=== PATIENT | female | born 1955 | race Caucasian/White ===

== ENCOUNTER → 2018-02-17 11:54 | Outpatient (CLI) | payer MEDICARE, MEDICAID, SELFPAY ==
--- NOTE | 2018-02-17 12:18 | RAD_ITS ---
STUDY: X-RAY - LUMBAR SPINE REASON FOR EXAM: Female, 62 years old. Fall. Lower back and tailbone pain. TECHNIQUE: 3 view(s) of the lumbar spine were obtained. COMPARISON: MRI of the lumbar spine, September 10, 2017. FINDINGS: There is reversal of the normal lumbar lordosis. There is no substantial scoliosis. There is a normal alignment of the vertebrae. There is a compression deformity of L3 unchanged from prior study. The remainder of the vertebral axial heights are maintained. There is stable disc space narrowing and endplate spondylosis most marked at L5-S1. There is diffuse gaseous distention of bowel loops. RAD/Lumbar Spine 2 or 3 Views IMPRESSION: 1. Stable flattening of this lumbar lordosis. 2. Stable compression deformity of L3. 3. Stable degenerative changes of the lumbar spine. Electronically Signed: Cole St DO at 17:12 EDT Tel [phone], Service support ,
--- NOTE | 2018-02-17 12:18 | RAD_ITS ---
STUDY: X-RAY - SACRUM/COCCYX REASON FOR EXAM: Female, 62 years old. Fall. Lower back elbow TECHNIQUE: 3 view(s) of the sacrum and coccyx were obtained. COMPARISON: None. FINDINGS: Normal bilateral sacroiliac joints. Normal visualized sacral ala and fused sacral bodies. Normal sacrococcygeal junction with a normal angulation. Normal coccygeal segments. The presacral soft tissue structures are unremarkable. RAD/Sacrum-Coccyx min 2 Views IMPRESSION: No fracture or dislocation. Electronically Signed: Cole St DO at 16:55 EDT Tel [phone], Service support ,
[2018-02-17 12:43] LABS: Amphetamine Urine VISTA NEGATIVE (<1000 ng/mL); Barbiturate Urine VISTA NEGATIVE (< 200 ng/mL); Benzodiazepine Urine VISTA NEGATIVE (< 200 ng/mL); Cocaine Urine VISTA NEGATIVE (< 300 ng/mL); Ecstacy Urine VISTA NEGATIVE (< 500 ng/mL); Methadone Urine VISTA NEGATIVE (< 300 ng/mL); PCP Urine VISTA NEGATIVE (< 25 ng/mL); THC Urine VISTA NEGATIVE (< 50 ng/mL); Vista UDS pH Range 8
== END ==
PROVIDERS: Family Provider Nurse Practitioner Family; PCP Nurse Practitioner Family; Visit Provider Anesthesiology Pain Medicine
DX: M54.9 Dorsalgia, unspecified (principal); M79.606 Pain in leg, unspecified; W19.XXXA Unspecified fall, initial encounter; F11.20 Opioid dependence, uncomplicated
CPT/HCPCS: 72100; 72220; 80307

== ENCOUNTER 2018-04-23 16:39 | Inpatient (IN) | payer MEDICARE, MEDICAID, SELFPAY ==
[2018-04-23] VITALS (14 sets, daily range): BP systolic 106–147; BP diastolic 70–93; PULSE 108–124; RESP 15–32; TEMP 36.8–36.9; O2SAT 94–98; BMI 14.1; BMI 14.2; BMI 13.1
--- NOTE | 2018-04-23 16:54 | EKG12_ITS ---
Test Reason : SOB Blood Pressure : / mmHG Vent. Rate : 111 BPM Atrial Rate : 111 BPM P-R Int : 140 ms QRS Dur : 078 ms QT Int : 298 ms P-R-T Axes : 083 079 074 degrees QTc Int : 405 ms Sinus tachycardia Biatrial enlargement Abnormal ECG Confirmed by NEMESIO MÁRQUEZ, LIBORIO ([id number]), city editor HARSH GARCIA ([id number] on 04/25/2018 1:07:09 PM Referred By: LAM Confirmed By:LIBORIO HERR MD
--- NOTE | 2018-04-23 16:56 | ED.DCSUM_ITS ---
- ER Visit Summary Date of Service: 04/23/18 Chief Complaint: Shortness of breath History of Present Illness: The patient is a 62 F presenting with shortness of breath, wheezing, cough. She states this has been ongoing for the past week. She has had a productive cough. She called her family doctor and they called her in a Z-Zaheer. She has not improved. She is on home O2 2 L. She continues to smoke 1 pack per day. She has history of COPD and Crohn's disease. Physical Examination: Vitals are stable. Patient is afebrile. Alert no acute distress. HEENT exam is unremarkable. Neck is supple. Lungs are diminished bilaterally. Heart is regular and tachycardic Abdomen is soft nontender nondistended. Extremities are unremarkable. Skin is warm and dry. No focal neurologic deficit. Remainder of exam is unremarkable. Emergency Department Course and Treatment: Patient is given albuterol, atrovent. EKG is sinus rate of 111, peaked T waves. Chest x-ray shows COPD. CBC, chemistries unremarkable other than potassium is 6.0. Troponin is negative. Patient was given insulin and glucose IV. She was given Solu-Medrol IV. CTA chest shows no PE or dissection, emphysema. Patient continues to have wheezing and shortness of breath despite breathing treatments and medications. Discussed with the hospitalist for admission. She will be given calcium and Kayexalate. Patient will be admitted to telemetry. Disposition: Admission Impression: COPD exacerbation, hyperkalemia This note was generated with [facility] dictation software. It may contain incorrect words, spelling, and punctuation that were not noted in review of the chart prior to signing ED Disposition - Plan for ED Patient: Chief Complaint: Shortness of Breath Referrals: Betina Rae, NURIA-C [Primary Care Provider] -
--- NOTE | 2018-04-23 17:00 | RAD_ITS ---
STUDY: X-RAY CHEST REASON FOR EXAM: Female, 62 years old. Shortness of breath. History of COPD. TECHNIQUE: Single AP portable view of the chest. COMPARISON: None. FINDINGS: Telemetry wires overlie the chest. The lungs are markedly hypoexpanded. There is diffuse coarsened interstitial markings. There is evidence of scarring and pleural thickening in the left lower costophrenic angle. This appears chronic however a acute abnormality cannot BE completely ruled out. Normal size heart. Normal mediastinum and jimmy. Normal visualized pulmonary arteries. There is atherosclerotic calcification of the aortic arch with tortuosity. The thoracic spine is obscured by the mediastinum. Normal visualized ribs, clavicles, and shoulders. There is no demonstrated abnormality of the visualized soft tissue structures of the upper abdomen. RAD/Chest 1 View (Portable) IMPRESSION: COPD with pleural thickening and scarring in the left lung base. Patient may benefit from CT to rule out underlying mass or acute infiltrate. Electronically Signed: Cole St DO at 17:11 EDT Tel [phone], Service support ,
[2018-04-23] MEDS: Ipratropium/Albuterol Sulfate 3 ML AMPUL.NEB INHALATION ×2 (17:06→23:15)
[2018-04-23] MEDS: Albuterol 2.5 MG/3 ML VIAL.NEB. INHALATION ×3 (17:06→17:56)
[2018-04-23 17:09] LABS: Absolute Lymphocyte Count 1.66 X10^3/ul (0.83-4.51); Absolute Neutrophil Count 7.8 X10^3/uL (2.0-7.7); Basophil# 0.03 X10^3/uL; Basophil% 0.3 % (0-1); Eosinophils% 0.9 % (0-5); Hematocrit 42.5 % (37-47); Hemoglobin 13.4 g/dl (12.0-15.0); Lymphocyte # 1.66 X10^3/ul (4.0); Lymphocyte % 15.4 % (19-41); Mean Corp Hgb Conc 31.5 g/gl (32-36); Mean Corpuscular Hgb 31.5 pg (27.0-32.0); Mean Platelet Vol. 10.6 fl (6.2-12.0); Monocyte# 1.15 X10^3/uL; Monocyte% 10.7 % (0-10); Neutrophil # 7.82 X10^3/uL (2.7-7.7); Neutrophil % 72.6 % (47-70); Platelet Count 320 K/mm3 (150-450); RBC Distribution Width CV 12.9 % (11.6-14.6); RBC Distribution Width SD 47.1 fl (35.1-43.9); Red Blood Count 4.25 M/mm3 (4.2-5.4); White Blood Count 10.8 K/mm3 (4.4-11.0)
[2018-04-23 17:23] LABS: POSITIVE COUNT NO; POSITIVE DIFFERENTIAL NO; POSITIVE MORPHOLOGY NO
[2018-04-23 17:33] LABS: Anion Gap 5 (5-15); BUN 13 mg/dL (7-18); BUN/Creat Ratio 21.9 RATIO (10-20); Calcium,Total 9.2 mg/dL (8.5-10.1); Chloride 97 mmol/L (98-107); Creatinine, Serum 0.59 mg/dL (0.55-1.02); EST Glomerular Filtration Rate 110 mL/min (>60); Est Glom Filt Rate - Afr Amer 133 mL/min (>60); Estimated Creatinine Clearance 58.01 ml/min; Glucose 85 mg/dL (74-106); Sodium Level 135 mmol/L (136-145)
--- NOTE | 2018-04-23 17:35 | CT_ITS ---
STUDY: CTA CHEST REASON FOR EXAM: Female, 62 years old. Cough. Shortness of breath. Wheezing for one week. RADIATION DOSAGE (If Supplied By Facility): CTDIvol = ( 5.34 ) mGy, DLP = ( 160.92 ) mGycm TECHNIQUE: The examination was performed with the intravenous administration of 100 ml of Isovue 300 contrast material. Post-processing of the angiographic images was performed, with multiplanar reformation and 3D reconstruction. Individualized dose optimization techniques were used for this CT. COMPARISON: Chest, April 23, 2018. FINDINGS: Normal enhancement of the main pulmonary artery and right and left pulmonary arteries. Normal enhancement of the bilateral peripheral pulmonary arteries. There is no demonstrated pulmonary embolism. Normal thoracic aorta and visualized great vessels. There is no demonstrated aortic dissection. Normal heart and pericardium. Normal mediastinum. Normal hilar regions. Normal visualized trachea and bronchi. The lungs are hyper expanded, with flattening of the hemidiaphragms. There are diffuse emphysematous changes in the lungs without focal mass. There is evidence of an azygous lobe in the right upper hemithorax. There is elevation of the left anterior diaphragm with minimal atelectatic changes at the left lung base. This accounts for the abnormality seen in this area on plain film. Normal pleura. Normal chest wall structures. Normal osseous structures. There is marked dilatation of the left renal collecting system. The remainder of the visualized upper abdomen is grossly normal. CT/CTA Chest W/WO Contrast IMPRESSION: 1. No evidence of pulmonary embolus. 2. No aortic dissection or aneurysm. 3. Marked emphysematous changes of the lungs without mass or infiltrate. 4. Elevation of the left anterior diaphragm with minimal left basilar atelectasis. 5. Dilated left renal collecting system. Electronically Signed: Cole St DO at 18:09 EDT Tel [phone], Service support ,
[2018-04-23] MEDS: Dextrose 50%-Water 25 GM/50 ML DISP.SYRIN IV (18:07)
[2018-04-23] MEDS: MethylPREDNISolone 125 MG/2 ML Vial IV (18:57)
[2018-04-23] MEDS: Sodium Polystyrene Sulfonate 15 GM/60 ML UDC 30 GM PO (19:34)
[2018-04-23] MEDS: CALCIUM CHLORIDE IV (19:43)
[2018-04-23] MEDS: WATER IV (19:43)
[2018-04-23] MEDS: DEXTROSE 5% IV (19:43)
--- NOTE | 2018-04-23 20:06 | PCM.HP.STD ---
Problem List (1) COPD with acute exacerbation Status: Acute (2) Hyperkalemia Status: Acute History of Present Illness Date of Admission: 04/23/18 This is a 62-year-old cachectic female with a significant history of COPD, Smoker for about 39 years and still continues to smoke; home oxygen use; and Crohn disease status post partial bowel resection who presents because of progressively worsening shortness of breath ?3-4 days. She uses 2 L nasal cannula home as needed but because of her current symptoms she has seen herself using her home oxygen continuously this last couple of days. She saw her primary care physician who started her on Z-Zaheer. She has 2 more doses of a Z-Zaheer left to take. However, because she noticed that she was progressively getting worse she presented herself to the emergency department today. At emergency department her potassium was 6.0 and she had peaked T waves. Per ED doctor, lab reported that the patient's blood was mildly hemolyzed. Patient is on home potassium supplement. Past Medical History Medical History: Medical History (Last Updated 04/23/18 @ 21:33 by Boubacar Donaldson MD) COPD (chronic obstructive pulmonary disease) J44.9 Crohn disease K50.90 Allergies erythromycin base Adverse Reaction (Verified 04/23/18 17:47) Unknown hydrocodone [From Vicodin] Adverse Reaction (Verified 04/23/18 16:41) Unknown alerted mental status Sulfa (Sulfonamide Antibiotics) Adverse Reaction (Verified 04/23/18 16:42) Nausea Home Medications: Ambulatory Orders Medication Instructions Recorded Acetaminophen 325 mg PO TID PRN PRN 04/23/18 Albuterol Inhaler [Ventolin Hfa 2 puff INHALATION Q6H PRN PRN 04/23/18 (SP)] Budesonide/Formoterol 160/4.5 2 puff INHALATION BID 04/23/18 [Symbicort 160/4.5 Mcg Inhaler (SP)] Cholecalciferol (Vitamin D3) 2,000 unit PO DAILY 04/23/18 [Vitamin D3] Ferrous Sulfate 325 mg PO DAILY@0800 04/23/18 Gabapentin [Neurontin] 300 mg PO TIDCM 04/23/18 Guaifenesin [Mucinex] 600 mg PO BID 04/23/18 Ipratropium/Albuterol Sulfate 3 ml INHALATION Q4H.RT 04/23/18 [Duoneb] Loperamide [Imodium] 2 mg PO Q4H PRN PRN 04/23/18 Magnesium Oxide [Magnesium] 400 mg PO BID 04/23/18 Melatonin 5 mg PO QHS 04/23/18 Mesalamine [Apriso] 375 mg PO DAILY 04/23/18 Potassium Chloride [K-Dur] 10 meq PO DAILY 04/23/18 Tiotropium [place] [Spiriva] 1 puff IH DAILY 04/23/18 traMADol [Ultram (G)] 50 mg PO BID 04/23/18 Surgical History: - - Bowel resection Psychiatric History: No pertinent psych hx Smoking Status: Current every day smoker Tobacco Use: Cigarettes Alcohol: None Drugs: None - *Family History Maternal History Items: No pertinent history Paternal History Items: No pertinent history Review of Systems Constitutional: Reports: Fatigue Eyes: Denies: Blurred vision, Pain HEENT: Reports: Head Aches Cardiovascular: Denies: Chest Pain, Palpitations Respiratory: Reports: Cough, Shortness of breath at rest Gastrointestinal: Reports: Abdominal Pain - Associated with coughing Genitourinary: Denies: Dysuria Musculoskeletal: Denies: Joint Pain, Joint Tenderness Neurological: Denies: Numbness, Tingling, Focal weakness Psychiatric: Reports: Anxiety Hematologic/ Lymphatic: Denies: Easy Bruising, Easy Bleeding VTE Information - Inpt Only VTE Present on Admission: No VTE Mechan Device Prophylaxis: None VTE Pharm Prophylaxis ordered?: Yes Patient Problems: Active and Suspected Problems (Last Updated 04/23/18 @ 21:33 by Boubacar Donaldson MD) COPD with acute exacerbation (Acute) Hyperkalemia (Acute) - Physical Exam General: Alert, Oriented x3, Cooperative HEENT: Atraumatic, PERRLA, EOMI, Normocephalic Neck: Supple, No JVD, Negative Carotid Bruits Lungs: Diminished Cardiovascular: Tachycardic Abdomen: Bowel Sounds Present, Soft, Non Tender Extremities: No edema, Capillary Refill Less than 3 Seconds Skin: No rashes, No breakdown Musculoskeletal: No Tenderness to Palpation of Joints or Extremities Lymphatic: No Cervical, Supraclavicular, or Inguinal Adenopathy Neurological: Cranial nerves II-XII grossly intact Vital Signs Temp Pulse Resp BP Pulse Ox 98.5 F 115 H 15 138/82 H 96 04/23/18 16:40 04/23/18 19:35 04/23/18 19:35 04/23/18 19:35 04/23/18 19:35 Oxygen Flow Rate (L/min) 2 Oxygen Delivery Method Nasal Cannula Weight: 36.242 kg Body Mass Index (BMI) 14.1 Laboratory Tests Past 24 Hrs 04/23/18 04/23/18 16:50 16:50 WBC 10.8 RBC 4.25 Hgb 13.4 Hct 42.5 MCV 100.0 H MCH 31.5 MCHC 31.5 L RDW 12.9 RDW Differential 47.1 H Plt Count 320 MPV 10.6 Immature Gran % (Auto) 0.100 Neut % (Auto) 72.6 H Lymph % (Auto) 15.4 L [place] % (Auto) 10.7 H Eos % (Auto) 0.9 Baso % (Auto) 0.3 Absolute Neuts (auto) 7.8 H Absolute Lymphs (auto) 1.66 Total Counted Not Reportable Sodium 135 L Potassium 6.0 H* Chloride 97 L Carbon Dioxide 33.0 H Anion Gap 5 BUN 13 Creatinine 0.59 Estim Creat Clear Calc 58.01 Est GFR (MDRD) Af Amer 133 Est GFR (MDRD) Non-Af 110 BUN/Creatinine Ratio 21.9 H Glucose 85 Calcium 9.2 Troponin I < 0.015 Assessment/Plan All Active Problems (Last Updated 04/23/18 @ 21:33 by Boubacar Donaldson MD) COPD with acute exacerbation (Acute) Hyperkalemia (Acute) This is a 62-year-old cachectic female with a significant history of COPD, Smoker for about 39 years and still continues to smoke; home oxygen use; and Crohn disease status post partial bowel resection who presents because of progressively worsening shortness of breath ?3-4 days and found to have hyperkalemia. COPD exacerbation Received Solu-Medrol at the ED Solu-Medrol continued DuoNeb scheduled Albuterol as needed Home Symbicort and Spiriva continued. Will continue her last 2 more doses of Zithromax 250 mg Hyperkalemia Potassium 6.0 with a tall T waves and tachycardia. She takes home potassium, held Received insulin, Kayexalate and albuterol inhaler while at the ED Normal saline infusion Miralax ordered Repeat EKG in 3 hours Repeat a BMP in 4 hours. Crohn's disease Continue home mesalamine On home magnesium, continue Elevated blood pressure without diagnosis of HTN Patient report that occasionally her blood pressure at home has been high but then she has no diagnosis of high blood pressure. Clonidine as needed. DVT prophylaxis with subcutaneous Lovenox. Code Visit Inpatient E&M: 52215 Init Hosp L2
--- NOTE | 2018-04-23 20:20 | NURSING ---
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
[2018-04-23] MEDS: 0.9% Normal Saline 1,000 ML 75 ML IV (21:00)
[2018-04-23] MEDS: 0.9% NaCl Peripheral Flush Adult/Peds IV (21:00)
[2018-04-23] MEDS: Magnesium Oxide 400 MG Tablet PO (22:36)
[2018-04-23] MEDS: guaiFENesin 600 MG Tablet PO (22:36)
[2018-04-23] MEDS: MELATONIN 10 MG TABLET 5 MG PO (22:37)
[2018-04-23] MEDS: traMADol 50 MG Tablet PO (22:41)
[2018-04-23] MEDS: Ondansetron 4 MG/2 ML Vial IV (22:45)
[2018-04-24] VITALS (20 sets, daily range): BP systolic 125–155; BP diastolic 59–77; PULSE 67–160; RESP 16–27; TEMP 36.8–37.4; O2SAT 95–99
[2018-04-24 00:57] LABS: BUN 9 mg/dL (7-18); Creatinine, Serum 0.53 mg/dL (0.55-1.02); Glucose 221 mg/dL (74-106)
[2018-04-24 00:58] LABS: Anion Gap 4 (5-15); BUN/Creat Ratio 16.9 RATIO (10-20); Calcium,Total 8.6 mg/dL (8.5-10.1); Chloride 98 mmol/L (98-107); EST Glomerular Filtration Rate 124 mL/min (>60); Est Glom Filt Rate - Afr Amer 150 mL/min (>60); Sodium Level 137 mmol/L (136-145)
[2018-04-24 02:51] LABS: Magnesium 1.8 mg/dL (1.6-2.6)
[2018-04-24 06:34] LABS: Hematocrit 37.4 % (37-47); Mean Corp Hgb Conc 32.1 g/gl (32-36); Mean Corpuscular Hgb 31.7 pg (27.0-32.0); Mean Corpuscular Volume 98.9 fL (81-99); Mean Platelet Vol. 10.8 fl (6.2-12.0); Platelet Count 264 K/mm3 (150-450); RBC Distribution Width CV 12.7 % (11.6-14.6); RBC Distribution Width SD 45.1 fl (35.1-43.9); Red Blood Count 3.78 M/mm3 (4.2-5.4); White Blood Count 6.2 K/mm3 (4.4-11.0)
[2018-04-24 06:44] LABS: Scan Indicated on CBC? Y/N NO
[2018-04-24 06:47] LABS: Anion Gap 4 (5-15); BUN 8 mg/dL (7-18); BUN/Creat Ratio 22.2 RATIO (10-20); Calcium,Total 8.3 mg/dL (8.5-10.1); Chloride 99 mmol/L (98-107); Creatinine, Serum 0.36 mg/dL (0.55-1.02); EST Glomerular Filtration Rate 195 mL/min (>60); Est Glom Filt Rate - Afr Amer 235 mL/min (>60); Estimated Creatinine Clearance 87.89 ml/min; Glucose 136 mg/dL (74-106); Potassium 3.8 mmol/L (3.5-5.1); Sodium Level 138 mmol/L (136-145)
[2018-04-24] MEDS: Ipratropium/Albuterol Sulfate 3 ML AMPUL.NEB INHALATION ×4 (07:35→19:22)
[2018-04-24] MEDS: Budesonide Respules 0.5 MG/2 ML AMPUL.NEB. INHALATION ×2 (07:35→19:22)
--- NOTE | 2018-04-24 08:13 | PCM.PN.HOSP ---
Patient Problems: Active and Suspected Problems (Last Updated 04/23/18 @ 21:33 by Boubacar Donaldson MD) COPD with acute exacerbation (Acute) Hyperkalemia (Acute) Subjective: Patient with no acute events since admission per self and per nursing report. She does state that she feels as though she is less dyspneic and has less wheezing since initial presentation. Family present and did discuss plan of care as well as encouragement of tobacco cessation. She notes currently she smokes approximately 4 cigarettes per day. Patient confirms that she is using 2 L nasal cannula chronically. Patient understands that oxygenation testing will need to be performed prior to discharge to assure there is no increased oxygen needs. Patient denies fevers, chills, nausea, emesis, abdominal pain, chest pain or worsened dyspnea. Objective: Physical Examination: General: awake, alert, oriented x 3 and cooperative, seated upright in bedside chair, in no apparent distress. Skin: normal color, turgor, no icterus, cyanosis. HEENT: AT/NC, EOMI, PERRLA, MMM. Lungs: Severely diffusely diminished BS, mild effort, recent breathing treatment completion, no rales, ronchi or wheezing. Heart: Mildly tachycardic with regular rhythm; no gallop, rub audible. Abdomen: soft, thin, cachetic habitus, NTTP, ND, normal BS. Extremities: no cyanosis, clubbing or edema. Neurological: patient awake, alert, oriented x 3; cognitive function intact; pupils equally reactive to light and accomodation; cranial nerves II-XII grossly normal, moving all 4 extremities, no focal deficits, strength moderately to severely globally decreased secondary to acute presentation. Psychiatric: affect appears normal, no acute evidence of depressive or anxiety feelings. Vitals/I&O's: Vital Signs Temp Pulse Resp BP Pulse Ox 98.2 F 102 H 16 126/73 H 95 04/24/18 04:30 04/24/18 07:36 04/24/18 07:36 04/24/18 04:30 04/24/18 07:43 Oxygen Flow Rate (L/min) 2 Oxygen Delivery Method Nasal Cannula Weight: 73 lb 13.678 oz Body Mass Index (BMI) 13.1 Intake and Output for Last 24 Hours 04/22/18 04/23/18 04/24/18 23:59 23:59 23:59 Intake Total 973 / 973 Balance 973 / 973 Laboratory Results 04/24/18 00:23: Magnesium 1.8 04/24/18 00:23: Sodium 137, Potassium 4.0, Chloride 98, Carbon Dioxide 35.0 H, Anion Gap 4 L, BUN 9, Creatinine 0.53 L, Estim Creat Clear Calc 59.70, Est GFR (MDRD) Af Amer 150, Est GFR (MDRD) Non-Af 124, BUN/Creatinine Ratio 16.9, Glucose 221 H, Calcium 8.6 04/24/18 05:45: WBC 6.2, RBC 3.78 L, Hgb 12.0, Hct 37.4, MCV 98.9, MCH 31.7, MCHC 32.1, RDW 12.7, RDW Differential 45.1 H, Plt Count 264, MPV 10.8 04/24/18 05:45: Sodium 138, Potassium 3.8, Chloride 99, Carbon Dioxide 35.0 H, Anion Gap 4 L, BUN 8, Creatinine 0.36 L, Estim Creat Clear Calc 87.89, Est GFR (MDRD) Af Amer 235, Est GFR (MDRD) Non-Af 195, BUN/Creatinine Ratio 22.2 H, Glucose 136 H, Calcium 8.3 L Current Medications Acetaminophen (Tylenol) 325 mg PO TID PRN PRN PRN Reason: PAIN Al Hydroxide/Mg Hydroxide (Mylanta Ii) 30 ml PO Q6H PRN PRN PRN Reason: Gastric burning Albuterol Sulfate (Ventolin Aerosols) 2.5 mg INHALATION Q2H PRN PRN PRN Reason: SHORTNESS OF BREATH Albuterol/Ipratropium (Duoneb) 3 ml INHALATION Q4H.RT [facility] Last Admin: 04/24/18 07:35 Dose: 3 ml Azithromycin (Zithromax) 250 mg PO DAILY BRIANDA Stop: 04/25/18 10:01 Bisacodyl (Dulcolax) 5 mg PO DAILY PRN PRN PRN Reason: Constipation Budesonide (Pulmicort Aerosol) 0.5 mg INHALATION Q12H.RT [facility] Last Admin: 04/24/18 07:35 Dose: 0.5 mg Cholecalciferol (Vitamin D) 2,000 unit PO DAILY [facility] Clonidine (Catapres) 0.1 mg PO Q6H PRN PRN PRN Reason: SBP>160 Enoxaparin Sodium (Lovenox) 40 mg SC DAILY@1000 [facility] Ferrous Sulfate (Ferrous Sulfate) 325 mg PO DAILY@0800 [facility] Gabapentin (Neurontin) 300 mg PO TIDCM [facility] Guaifenesin (Mucinex) 600 mg PO BID [facility] Last Admin: 04/23/18 22:36 Dose: 600 mg Sodium Chloride () 1,000 mls @ 75 mls/hr IV .[id number] [facility] Last Admin: 04/23/18 21:00 Dose: 75 mls/hr Loperamide HCl (Imodium) 2 mg PO Q4H PRN PRN PRN Reason: Diarrhea Magnesium Hydroxide (Milk Of Magnesia) 30 ml PO DAILY PRN PRN Reason: Constipation Magnesium Oxide (Mag-Ox 400) 400 mg PO BID [facility] Last Admin: 04/23/18 22:36 Dose: 400 mg Melatonin (Melatonin) 5 mg PO QHS [facility] Last Admin: 04/23/18 22:37 Dose: 5 mg Methylprednisolone (Solu-Medrol) 40 mg IV Q8 [facility] Last Admin: 04/24/18 05:03 Dose: 40 mg Non-Formulary Medication (Mesalamine [Apriso]) 375 mg PO DAILY [facility] Nutritional Formula (Lactose Free) (Ensure Enlive) 120 ml PO 4X/DAY [facility] Last Admin: 04/23/18 22:41 Dose: 120 ml Ondansetron HCl (Zofran) 4 mg IV Q8H PRN PRN PRN Reason: NAUSEA Last Admin: 04/23/18 22:45 Dose: 4 mg Polyethylene Glycol (Miralax) 17 gm PO BID [facility] Last Admin: 04/23/18 22:36 Dose: Not Given Promethazine HCl (Phenergan) 12.5 mg IV Q4H PRN PRN PRN Reason: NAUSEA/VOMITING Sodium Chloride () 5 - 30 ml IV UD PRN PRN Reason: SALINE FLUSH Last Admin: 04/23/18 21:00 Dose: 10 ml Tramadol HCl (Ultram) 50 mg PO BID [facility] Last Admin: 04/23/18 22:41 Dose: 50 mg Zolpidem Tartrate (Ambien (Generic)) 5 mg PO QHS PRN PRN PRN Reason: INSOMNIA Medical Necessity - Tobacco Use Smoking Status: Current every day smoker Tobacco Use: Cigarettes Assessment/Plan All Active Problems (Last Updated 04/23/18 @ 21:33 by Boubacar Donaldson MD) COPD with acute exacerbation (Acute) Hyperkalemia (Acute) The patient is a 62 y/o F w/ PMHx: Chronic COPD w/ Chronic Hypoxic Respiratory Failure, Crohn's disease, Fe Deficiency Anemia, Tobacco use ongoing who presents to the [facility] ED on 04/23/18 with history of progressively worsening dyspnea x 3-4 days. (1) Acute on chronic COPD exacerbation w/ Chronic Hypoxic Respiratory Failure: CXR w/ chronic changes, CBC on admission w/ WBC 10.8 with L shift, afebrile. Admitted to PCU, maintain on oxygen with wean as tolerated to home oxygen supplementation, continue ATC duonebs, PRN albuterol, IV methylprednisolone with prednisone transition in AM, HOB, IS parameters, maintained on azithromycin to complete recent PCP administered z-pack. CTPA upon admission w/ no acute evidence of PE, aortic dissection or aneurysm with marked emphysematous changes of the lungs without any mass or infiltrate. (2) Elevated BP, Tachycardic without HTN Dx: Notes elevated BP at home, elevated BP above goal on day of presentation, also ongoing tachycardia 110-130s ongoing, asymptomatic. Given COPD reticent to given higher dose BB, will trial lopressor IV x 1 now, did not improve w/ anti-anxiolytic. TSH, FT4 pending in case cause of tachycardia. Of note, CTPA upon admission w/ no acute evidence of PE, aortic dissection or aneurysm with marked emphysematous changes of the lungs without any mass or infiltrate. This presentation may be solely secondary to current acute exacerbation with usage of steroids and aerosols. (3) Hyperkalemia: EKG w/ peaked T-waves, admission K+ 6, administered insulin, kayexelate, albuterol, NS, trended w/ repeat 4.0-->04/24/18 AM K+ 3.8, discontinue supplementation which she had been taking at home. (4) Crohn's Disease: Maintain on home mesalamine regimen. (5) Fe Deficiency Anemia: Admission Hgb 12, stable, continue home Fe supplementation. (6) Severe Protein-Calorie Malnutrition: Evidenced per BMI, habitus, muscle and fat loss, nutrition consulted, supplementations. (7) DVT Prophylaxis: SCDs, lovenox. Code Visit Inpatient E&M: 02361 Subs Hosp L3
[2018-04-24] MEDS: Ferrous Sulfate 325 MG Tablet PO (08:20)
[2018-04-24] MEDS: Gabapentin 300 MG Capsule PO ×3 (08:20→17:26)
[2018-04-24] MEDS: 0.9% Normal Saline 1,000 ML 75 ML IV ×2 (08:23→21:50)
--- NOTE | 2018-04-24 08:23 | PN_ITS ---
Patient Problems: Active and Suspected Problems (Last Updated 04/23/18 @ 21:33 by Boubacar Donaldson MD) COPD with acute exacerbation (Acute) Hyperkalemia (Acute) Subjective: Patient with no acute events since admission per self and per nursing report. She does state that she feels as though she is less dyspneic and has less wheezing since initial presentation. Family present and did discuss plan of care as well as encouragement of tobacco cessation. She notes currently she smokes approximately 4 cigarettes per day. Patient confirms that she is using 2 L nasal cannula chronically. Patient understands that oxygenation testing will need to be performed prior to discharge to assure there is no increased oxygen needs. Patient denies fevers, chills, nausea, emesis, abdominal pain, chest pain or worsened dyspnea. Objective: Physical Examination: General: awake, alert, oriented x 3 and cooperative, seated upright in bedside chair, in no apparent distress. Skin: normal color, turgor, no icterus, cyanosis. HEENT: AT/NC, EOMI, PERRLA, MMM. Lungs: Severely diffusely diminished BS, mild effort, recent breathing treatment completion, no rales, ronchi or wheezing. Heart: Mildly tachycardic with regular rhythm; no gallop, rub audible. Abdomen: soft, thin, cachetic habitus, NTTP, ND, normal BS. Extremities: no cyanosis, clubbing or edema. Neurological: patient awake, alert, oriented x 3; cognitive function intact; pupils equally reactive to light and accomodation; cranial nerves II-XII grossly normal, moving all 4 extremities, no focal deficits, strength moderately to severely globally decreased secondary to acute presentation. Psychiatric: affect appears normal, no acute evidence of depressive or anxiety feelings. Vitals/I&O's: Vital Signs Temp Pulse Resp BP Pulse Ox 98.2 F 102 H 16 126/73 H 95 04/24/18 04:30 04/24/18 07:36 04/24/18 07:36 04/24/18 04:30 04/24/18 07:43 Oxygen Flow Rate (L/min) 2 Oxygen Delivery Method Nasal Cannula Weight: 73 lb 13.678 oz Body Mass Index (BMI) 13.1 Intake and Output for Last 24 Hours 04/22/18 04/23/18 04/24/18 23:59 23:59 23:59 Intake Total 973 / 973 Balance 973 / 973 Laboratory Results 04/24/18 00:23: Magnesium 1.8 04/24/18 00:23: Sodium 137, Potassium 4.0, Chloride 98, Carbon Dioxide 35.0 H, Anion Gap 4 L, BUN 9, Creatinine 0.53 L, Estim Creat Clear Calc 59.70, Est GFR ( MDRD) Af Amer 150, Est GFR (MDRD) Non-Af 124, BUN/Creatinine Ratio 16.9, Glucose 221 H, Calcium 8.6 04/24/18 05:45: WBC 6.2, RBC 3.78 L, Hgb 12.0, Hct 37.4, MCV 98.9, MCH 31.7, MCHC 32.1, RDW 12.7, RDW Differential 45.1 H, Plt Count 264, MPV 10.8 04/24/18 05:45: Sodium 138, Potassium 3.8, Chloride 99, Carbon Dioxide 35.0 H, Anion Gap 4 L, BUN 8, Creatinine 0.36 L, Estim Creat Clear Calc 87.89, Est GFR ( MDRD) Af Amer 235, Est GFR (MDRD) Non-Af 195, BUN/Creatinine Ratio 22.2 H, Glucose 136 H, Calcium 8.3 L Current Medications Acetaminophen (Tylenol) 325 mg PO TID PRN PRN PRN Reason: PAIN Al Hydroxide/Mg Hydroxide (Mylanta Ii) 30 ml PO Q6H PRN PRN PRN Reason: Gastric burning Albuterol Sulfate (Ventolin Aerosols) 2.5 mg INHALATION Q2H PRN PRN PRN Reason: SHORTNESS OF BREATH Albuterol/Ipratropium (Duoneb) 3 ml INHALATION Q4H.RT [facility] Last Admin: 04/24/18 07:35 Dose: 3 ml Azithromycin (Zithromax) 250 mg PO DAILY BRIANDA Stop: 04/25/18 10:01 Bisacodyl (Dulcolax) 5 mg PO DAILY PRN PRN PRN Reason: Constipation Budesonide (Pulmicort Aerosol) 0.5 mg INHALATION Q12H.RT [facility] Last Admin: 04/24/18 07:35 Dose: 0.5 mg Cholecalciferol (Vitamin D) 2,000 unit PO DAILY [facility] Clonidine (Catapres) 0.1 mg PO Q6H PRN PRN PRN Reason: SBP>160 Enoxaparin Sodium (Lovenox) 40 mg SC DAILY@1000 [facility] Ferrous Sulfate (Ferrous Sulfate) 325 mg PO DAILY@0800 [facility] Gabapentin (Neurontin) 300 mg PO TIDCM [facility] Guaifenesin (Mucinex) 600 mg PO BID [facility] Last Admin: 04/23/18 22:36 Dose: 600 mg Sodium Chloride () 1,000 mls @ 75 mls/hr IV .[id number] [facility] Last Admin: 04/23/18 21:00 Dose: 75 mls/hr Loperamide HCl (Imodium) 2 mg PO Q4H PRN PRN PRN Reason: Diarrhea Magnesium Hydroxide (Milk Of Magnesia) 30 ml PO DAILY PRN PRN Reason: Constipation Magnesium Oxide (Mag-Ox 400) 400 mg PO BID [facility] Last Admin: 04/23/18 22:36 Dose: 400 mg Melatonin (Melatonin) 5 mg PO QHS [facility] Last Admin: 04/23/18 22:37 Dose: 5 mg Methylprednisolone (Solu-Medrol) 40 mg IV Q8 [facility] Last Admin: 04/24/18 05:03 Dose: 40 mg Non-Formulary Medication (Mesalamine [Apriso]) 375 mg PO DAILY [facility] Nutritional Formula (Lactose Free) (Ensure Enlive) 120 ml PO 4X/DAY [facility] Last Admin: 04/23/18 22:41 Dose: 120 ml Ondansetron HCl (Zofran) 4 mg IV Q8H PRN PRN PRN Reason: NAUSEA Last Admin: 04/23/18 22:45 Dose: 4 mg Polyethylene Glycol (Miralax) 17 gm PO BID [facility] Last Admin: 04/23/18 22:36 Dose: Not Given Promethazine HCl (Phenergan) 12.5 mg IV Q4H PRN PRN PRN Reason: NAUSEA/VOMITING Sodium Chloride () 5 - 30 ml IV UD PRN PRN Reason: SALINE FLUSH Last Admin: 04/23/18 21:00 Dose: 10 ml Tramadol HCl (Ultram) 50 mg PO BID [facility] Last Admin: 04/23/18 22:41 Dose: 50 mg Zolpidem Tartrate (Ambien (Generic)) 5 mg PO QHS PRN PRN PRN Reason: INSOMNIA Medical Necessity - Tobacco Use Smoking Status: Current every day smoker Tobacco Use: Cigarettes Assessment/Plan All Active Problems (Last Updated 04/23/18 @ 21:33 by Boubacar Donaldson MD) COPD with acute exacerbation (Acute) Hyperkalemia (Acute) The patient is a 62 y/o F w/ PMHx: Chronic COPD w/ Chronic Hypoxic Respiratory Failure, Crohn's disease, Fe Deficiency Anemia, Tobacco use ongoing who presents to the [facility] ED on 04/23/18 with history of progressively worsening dyspnea x 3-4 days. (1) Acute on chronic COPD exacerbation w/ Chronic Hypoxic Respiratory Failure: CXR w/ chronic changes, CBC on admission w/ WBC 10.8 with L shift, afebrile. Admitted to PCU, maintain on oxygen with wean as tolerated to home oxygen supplementation, continue ATC duonebs, PRN albuterol, IV methylprednisolone with prednisone transition in AM, HOB, IS parameters, maintained on azithromycin to complete recent PCP administered z-pack. CTPA upon admission w/ no acute evidence of PE, aortic dissection or aneurysm with marked emphysematous changes of the lungs without any mass or infiltrate. (2) Elevated BP, Tachycardic without HTN Dx: Notes elevated BP at home, elevated BP above goal on day of presentation, also ongoing tachycardia 110- 130s ongoing, asymptomatic. Given COPD reticent to given higher dose BB, will trial lopressor IV x 1 now, did not improve w/ anti-anxiolytic. TSH, FT4 pending in case cause of tachycardia. Of note, CTPA upon admission w/ no acute evidence of PE, aortic dissection or aneurysm with marked emphysematous changes of the lungs without any mass or infiltrate. This presentation may be solely secondary to current acute exacerbation with usage of steroids and aerosols. (3) Hyperkalemia: EKG w/ peaked T-waves, admission K+ 6, administered insulin, kayexelate, albuterol, NS, trended w/ repeat 4.0-->04/24/18 AM K+ 3.8, discontinue supplementation which she had been taking at home. (4) Crohn's Disease: Maintain on home mesalamine regimen. (5) Fe Deficiency Anemia: Admission Hgb 12, stable, continue home Fe supplementation. (6) Severe Protein-Calorie Malnutrition: Evidenced per BMI, habitus, muscle and fat loss, nutrition consulted, supplementations. (7) DVT Prophylaxis: SCDs, lovenox. Code Visit Inpatient E&M: 73473 Subs Hosp L3
[2018-04-24] MEDS: proMETHazine 25 MG/ML Syringe 12.5 MG IV (08:24)
[2018-04-24] MEDS: Azithromycin 250 MG Tablet PO (10:21)
[2018-04-24] MEDS: Magnesium Oxide 400 MG Tablet PO ×2 (10:22→21:51)
[2018-04-24] MEDS: guaiFENesin 600 MG Tablet PO ×2 (10:23→21:52)
[2018-04-24] MEDS: MESALAMINE 400 MG CAPSULE.DR PO (10:27)
[2018-04-24] MEDS: traMADol 50 MG Tablet PO ×2 (10:27→21:53)
[2018-04-24] MEDS: LORazepam 0.5 MG Tablet PO (13:14)
[2018-04-24] MEDS: Ketorolac 15 MG/ML Vial IV ×2 (13:14→21:53)
--- NOTE | 2018-04-24 14:48 | CASEMGMT ---
RN SIMA visited pt at bedside, pt initially sleeping but was awoken by family present. Pt's nephew Cosmo, nephew's girlfriend and other unspecified family member at the bedside. Pt's nephew answered most questions. Nephew confirmed address and states he and his girlfriend live with the patient and assist in her care. The nephew is a cook at [employer] and not home at all times but girlfriend is able to assist when nephew at work. Pt states she has a walker, wheelchair, grab bars, BSC, raised toilet seat, shower chair, and a medical alert. Pt receives home health aide and homemaker aide services through [facility], although could not specify if this is provided through the Passport program. Receives assistance with bathing, housekeeping, and cooking needs, whatever she needs. Pt has home O2 at 2l/min which she obtains from [employer]. States she also has a nebulizer machine which she uses 4times a day. Pt uses [facility] pharmacy. Pt has two children, her daughter Ciara manages patient's finances. Pt denies having a living will or healthcare power energy attorney and is not interested in completing them at this time. Pt denies any additional needs at discharge but is receptive to an home health RN visit. spray worker notified of home health services and possible [employer] client. Will continue to follow and monitor for further DC needs. Anticipated DC Disposition: Home with home health RN and aide services Gabriela Pimentel RN
--- NOTE | 2018-04-24 14:50 | CASEMGMT ---
MATTHIAS spoke with RN SIMA and she thinks patient may have Passport. MATTHIAS called [facility] and spoke with Alex on the coverage line. Patient is active with [facility] and her high risk case manager is Lizette Lomas. Patient has a medical alert button, she gets home health aides through [facility] 2 hours per day Saturday through Saturday. Lizette is working on setting up [employer] for patient. MATTHIAS will notify [facility] when patient is ready for d/c. Ani RIZO MSW
--- NOTE | 2018-04-24 15:09 | CHAPLAIN ---
Type of Pastoral Visit _x__ Initial Visit ___ Follow-up Visit ___ On-call Visit ___ General Patient Visit ___ Spiritual Assessment ___ Family Conference ___ Bereavement ___ Rapid Response ___ Code Blue ___ Other (describe below) Pastoral Care Referral From _x__ Patient ___ Family ___ Nurse ___ Physician ___ Technologies Division Chair ___ Machine Cell Tuber ___ Other (describe below) Sacrament/Intervention _x__ Active listening ___ Anointing ___ Amish ___ Bereavement ___ Communion ___ Sandy exploration ___ ___ Life review _x__ Prayer ___ Reconciliation ___ Sacrament of Sick _x__ Supportive presence ___ Wedding ___ Other (describe below) Pastoral Comments patient lists off a number of health issues; several family members are with her in room; family says pt would not have survived if not in hospital; pt requests this site superintendent to contact a finance specialist she knows in [place] for her
[2018-04-24] MEDS: Metoprolol Tartrate 5 MG/5 ML Vial IV (15:21)
[2018-04-24 15:29] LABS: T4 Free Direct 1.05 ng/dL (0.76-1.46); Thyroid Stim Hormone (TSH) 0.21 uIU/mL (0.358-3.74)
[2018-04-24] MEDS: Ondansetron 4 MG/2 ML Vial IV (15:33)
[2018-04-24 17:10] LABS: Free T3 1.6 pg/mL (2.18-3.98)
[2018-04-24] MEDS: MELATONIN 10 MG TABLET 5 MG PO (21:51)
[2018-04-24] MEDS: Metoprolol Tartrate 25 MG Tablet PO (21:55)
[2018-04-24] MEDS: 0.9% NaCl Peripheral Flush Adult/Peds IV (22:01)
[2018-04-25] VITALS (19 sets, daily range): BP systolic 126–153; BP diastolic 63–84; PULSE 73–113; RESP 16–22; TEMP 36.7–37.6; O2SAT 89–100
--- NOTE | 2018-04-25 00:36 | NURSING ---
Report given to Gabriela Rios RN. She will resume care of pt at this time.
[2018-04-25] MEDS: Ipratropium/Albuterol Sulfate 3 ML AMPUL.NEB INHALATION ×6 (03:02→22:44)
--- NOTE | 2018-04-25 05:55 | EKG12_ITS ---
Test Reason : AM EKG Blood Pressure : / mmHG Vent. Rate : 081 BPM Atrial Rate : 081 BPM P-R Int : 140 ms QRS Dur : 086 ms QT Int : 362 ms P-R-T Axes : 087 078 074 degrees QTc Int : 420 ms Normal sinus rhythm Right atrial enlargement Borderline ECG When compared with ECG of 24-APR-2018 05:14, MANUAL COMPARISON REQUIRED, DATA IS UNCONFIRMED Confirmed by MINOR WIGGINS ([id number]), editor farm journal HARSH GARCIA ([id number]) on 04/29/2018 2:01:07 PM Referred By: SHANTEL Confirmed By:MINOR WIGGINS
[2018-04-25] MEDS: 0.9% NaCl Peripheral Flush Adult/Peds IV ×3 (06:09→23:45)
[2018-04-25] MEDS: Ketorolac 15 MG/ML Vial IV (06:11)
[2018-04-25] MEDS: Enoxaparin 30 MG/0.3 ML Syringe SC (06:12)
[2018-04-25] MEDS: Multivitamins,Ther W-Minerals Tablet 1 TABLET PO (09:30)
[2018-04-25] MEDS: predniSONE 20 MG Tablet 40 MG PO (09:30)
[2018-04-25] MEDS: Gabapentin 300 MG Capsule PO ×3 (09:31→16:14)
[2018-04-25] MEDS: Ferrous Sulfate 325 MG Tablet PO (09:31)
[2018-04-25] MEDS: guaiFENesin 600 MG Tablet PO ×2 (09:31→23:02)
[2018-04-25] MEDS: Magnesium Oxide 400 MG Tablet PO ×2 (09:32→23:02)
[2018-04-25] MEDS: MESALAMINE 400 MG CAPSULE.DR PO (09:32)
[2018-04-25] MEDS: dilTIAZem CD 120 MG Capsule PO (09:32)
[2018-04-25] MEDS: Azithromycin 250 MG Tablet PO (09:32)
[2018-04-25] MEDS: 0.9% Normal Saline 1,000 ML 75 ML IV ×2 (09:33→22:57)
[2018-04-25] MEDS: Polyethylene Glycol 3350 17 GM PACKET PO (09:40)
[2018-04-25] MEDS: traMADol 50 MG Tablet PO ×3 (09:40→23:03)
--- NOTE | 2018-04-25 10:23 | CASEMGMT ---
Patient will return home with resumption of [employer] services. PT/OT indicated she does not need their services at d/c. SW put green sheet on the chart with instructions. Plan: Home with resumption of [employer] services. Ani RIZO MSW
[2018-04-25] MEDS: proMETHazine 25 MG/ML Syringe 12.5 MG IV ×2 (10:51→23:45)
--- NOTE | 2018-04-25 13:03 | PCM.PN.HOSP ---
Patient Problems: Active and Suspected Problems (Last Updated 04/23/18 @ 21:33 by Boubacar Donaldson MD) COPD with acute exacerbation (Acute) Hyperkalemia (Acute) Subjective: The patient is a 62 y/o F w/ PMHx: Chronic COPD w/ Chronic Hypoxic Respiratory Failure, Crohn's disease, Fe Deficiency Anemia, Tobacco use ongoing who presents to the [facility] ED on 04/23/18 with history of progressively worsening dyspnea x 3-4 days. CXR w/ chronic changes, CBC on admission w/ WBC 10.8 with L shift, afebrile. Admitted to PCU, maintain on oxygen with wean as tolerated to home oxygen supplementation, continue ATC duonebs, PRN albuterol, IV methylprednisolone with prednisone transition 04/25/18 AM, HOB, IS parameters, maintained on azithromycin to complete recent PCP administered z-pack. CTPA upon admission w/ no acute evidence of PE, aortic dissection or aneurysm with marked emphysematous changes of the lungs without any mass or infiltrate. Ongoing improvement, expect likely discharge to home 04/26/18 AM. Elevated BP, Tachycardic without HTN Dx: Notes elevated BP at home, elevated BP above goal on day of presentation, also ongoing tachycardia 110-130s ongoing, asymptomatic. TSH 0.21, FT4 1.05, T3 1.6 thus likely alterations with acute presentation and not consistent with hyperthyroid state. CTPA upon admission w/ no acute evidence of PE, aortic dissection or aneurysm with marked emphysematous changes of the lungs without any mass or infiltrate. This presentation may be solely secondary to current acute exacerbation with usage of steroids and aerosols; however, ongoing therefore trial IV BB w/ improvement, transitioned to oral cardizem, continue to monitor and consider discharge to home on regimen if appropriate. Hyperkalemia upon ED presentation w/ EKG w/ peaked T-waves, admission K+ 6, administered insulin, kayexelate, albuterol, NS, trended w/ repeat 4.0-->04/24/18 AM K+ 3.8, discontinue supplementation which she had been taking at home. 04/25/18 BMP pending. Patient overnight with continued improvement with less dyspnea and less wheezing however still feeling remarkably weak and winded with any exertional attempts. Patient did request that her family not come in to avoid excessive talking which happened day prior. Again encouraged tobacco cessation and patient noted understanding importance of this measure. Discussed her tachycardia noted upon admission which had continued with negative workup for hyperthyroidism, negative pulmonary embolism assessment upon admission with improvement with regimen to control heart rate. Patient denies fevers, chills, nausea, emesis, abdominal pain, chest pain. Objective: Physical Examination: General: awake, alert, oriented x 3 and cooperative, lying in bed, fatigued appearance. Skin: normal color, turgor, no icterus, cyanosis. HEENT: AT/NC, EOMI, PERRLA, MMM. Lungs: Mildly improved but still severely diminished, improved effort, occasional expiratory wheezing noted bilateral bases, supplemental oxygen in place. Heart: Improved, normal rate and regular rhythm; no gallop, rub audible. Abdomen: soft, thin, cachetic habitus, NTTP, ND, normal BS. Extremities: no cyanosis, clubbing or edema. Neurological: patient awake, alert, oriented x 3; cognitive function intact; pupils equally reactive to light and accomodation; cranial nerves II-XII grossly normal, moving all 4 extremities, no focal deficits, strength moderately to severely globally decreased secondary to acute presentation. Psychiatric: affect appears normal, no acute evidence of depressive or anxiety feelings. Vitals/I&O's: Vital Signs Temp Pulse Resp BP Pulse Ox 98.5 F 98 20 H 144/64 H 95 04/25/18 09:25 04/25/18 11:10 04/25/18 09:25 04/25/18 09:25 04/25/18 09:41 Oxygen Flow Rate (L/min) [ 2 AMBULATION with Oxygen] Oxygen Flow Rate (L/min) [ 0 AMBULATING on Room Air] Oxygen Flow Rate (L/min) [At 0 REST on Room Air] Oxygen Flow Rate (L/min) 2 Oxygen Delivery Method Nasal Cannula Weight: 73 lb 13.678 oz Body Mass Index (BMI) 13.1 Intake and Output for Last 24 Hours 04/23/18 04/24/18 04/25/18 23:59 23:59 23:59 Intake Total 2435 / 2435 2491 / 2491 Balance 2435 / 2435 2491 / 2491 Laboratory Results 04/24/18 05:45: TSH 0.21 L, Free T4 1.05 04/24/18 05:45: Free T3 pg/dL 1.6 L Current Medications Acetaminophen (Tylenol) 325 mg PO TID PRN PRN PRN Reason: PAIN Al Hydroxide/Mg Hydroxide (Mylanta Ii) 30 ml PO Q6H PRN PRN PRN Reason: Gastric burning Albuterol Sulfate (Ventolin Aerosols) 2.5 mg INHALATION Q2H PRN PRN PRN Reason: SHORTNESS OF BREATH Albuterol/Ipratropium (Duoneb) 3 ml INHALATION Q4H.RT [facility] Last Admin: 04/25/18 11:25 Dose: 3 ml Bisacodyl (Dulcolax) 5 mg PO DAILY PRN PRN PRN Reason: Constipation Cholecalciferol (Vitamin D) 2,000 unit PO DAILY [facility] Last Admin: 04/25/18 09:31 Dose: 2,000 unit Clonidine (Catapres) 0.1 mg PO Q6H PRN PRN PRN Reason: SBP>160 Diltiazem HCl (Cardizem Cd) 120 mg PO DAILY [facility] Last Admin: 04/25/18 09:32 Dose: 120 mg Enoxaparin Sodium (Lovenox) 30 mg SC DAILY@0600 [facility] Last Admin: 04/25/18 06:12 Dose: 30 mg Ferrous Sulfate (Ferrous Sulfate) 325 mg PO DAILY@0800 [facility] Last Admin: 04/25/18 09:31 Dose: 325 mg Gabapentin (Neurontin) 300 mg PO TIDCM [facility] Last Admin: 04/25/18 12:26 Dose: 300 mg Guaifenesin (Mucinex) 600 mg PO BID [facility] Last Admin: 04/25/18 09:31 Dose: 600 mg Sodium Chloride () 1,000 mls @ 75 mls/hr IV .[id number] [facility] Last Admin: 04/25/18 09:33 Dose: 75 mls/hr Loperamide HCl (Imodium) 2 mg PO Q4H PRN PRN PRN Reason: Diarrhea Magnesium Hydroxide (Milk Of Magnesia) 30 ml PO DAILY PRN PRN Reason: Constipation Magnesium Oxide (Mag-Ox 400) 400 mg PO BID [facility] Last Admin: 04/25/18 09:32 Dose: 400 mg Melatonin (Melatonin) 5 mg PO QHS [facility] Last Admin: 04/24/18 21:51 Dose: 5 mg Mesalamine (Delzicol) 400 mg PO DAILY [facility] Last Admin: 04/25/18 09:32 Dose: 400 mg Multivitamins/Minerals (Multivitamin With Minerals) 1 tablet PO DAILYCM [facility] Last Admin: 04/25/18 09:30 Dose: 1 tablet Nutritional Formula (Lactose Free) (Ensure Enlive) 120 ml PO 4X/DAY [facility] Last Admin: 04/25/18 12:26 Dose: 120 ml Ondansetron HCl (Zofran) 4 mg IV Q8H PRN PRN PRN Reason: NAUSEA Last Admin: 04/24/18 15:33 Dose: 4 mg Polyethylene Glycol (Miralax) 17 gm PO BID [facility] Last Admin: 04/25/18 09:40 Dose: 17 gm Prednisone () 40 mg PO DAILY@0800 [facility] Last Admin: 04/25/18 09:30 Dose: 40 mg Promethazine HCl (Phenergan) 12.5 mg IV Q4H PRN PRN PRN Reason: NAUSEA/VOMITING Last Admin: 04/25/18 10:51 Dose: 12.5 mg Sodium Chloride () 5 - 30 ml IV UD PRN PRN Reason: SALINE FLUSH Last Admin: 04/25/18 06:09 Dose: 10 ml Tramadol HCl (Ultram) 50 mg PO BID [facility] Last Admin: 04/25/18 09:40 Dose: 50 mg Tramadol HCl (Ultram) 50 mg PO Q6H PRN PRN PRN Reason: MODERATE PAIN (4-5/10) Zolpidem Tartrate (Ambien (Generic)) 5 mg PO QHS PRN PRN PRN Reason: INSOMNIA Medical Necessity - Tobacco Use Smoking Status: Current every day smoker Tobacco Use: Cigarettes Assessment/Plan All Active Problems (Last Updated 04/23/18 @ 21:33 by Boubacar Donaldson MD) COPD with acute exacerbation (Acute) Hyperkalemia (Acute) The patient is a 62 y/o F w/ PMHx: Chronic COPD w/ Chronic Hypoxic Respiratory Failure, Crohn's disease, Fe Deficiency Anemia, Tobacco use ongoing who presents to the [facility] ED on 04/23/18 with history of progressively worsening dyspnea x 3-4 days. (1) Acute on chronic COPD exacerbation w/ Chronic Hypoxic Respiratory Failure: CXR w/ chronic changes, CBC on admission w/ WBC 10.8 with L shift, afebrile. Admitted to PCU, maintain on oxygen with wean as tolerated to home oxygen supplementation, continue ATC duonebs, PRN albuterol, IV methylprednisolone with prednisone transition 04/25/18 AM, HOB, IS parameters, maintained on azithromycin to complete recent PCP administered z-pack. CTPA upon admission w/ no acute evidence of PE, aortic dissection or aneurysm with marked emphysematous changes of the lungs without any mass or infiltrate. Ongoing improvement, expect likely discharge to home 04/26/18 AM. (2) Elevated BP, Tachycardic without HTN Dx: Notes elevated BP at home, elevated BP above goal on day of presentation, also ongoing tachycardia 110-130s ongoing, asymptomatic. TSH 0.21, FT4 1.05, T3 1.6 thus likely alterations with acute presentation and not consistent with hyperthyroid state. CTPA upon admission w/ no acute evidence of PE, aortic dissection or aneurysm with marked emphysematous changes of the lungs without any mass or infiltrate. This presentation may be solely secondary to current acute exacerbation with usage of steroids and aerosols; however, ongoing therefore trial IV BB w/ improvement, transitioned to oral cardizem, continue to monitor and consider discharge to home on regimen if appropriate. (3) Hyperkalemia: EKG w/ peaked T-waves, admission K+ 6, administered insulin, kayexelate, albuterol, NS, trended w/ repeat 4.0-->04/24/18 AM K+ 3.8, discontinue supplementation which she had been taking at home. 04/25/18 BMP pending. (4) Crohn's Disease: Maintain on home mesalamine regimen. (5) Fe Deficiency Anemia: Admission Hgb 12, stable, continue home Fe supplementation. 04/25/18 CBC pending. (6) Severe Protein-Calorie Malnutrition: Evidenced per BMI, habitus, muscle and fat loss, nutrition consulted, supplementations. (7) DVT Prophylaxis: SCDs, lovenox. Code Visit Inpatient E&M: 50827 Subs Hosp L2
--- NOTE | 2018-04-25 13:09 | PN_ITS ---
Patient Problems: Active and Suspected Problems (Last Updated 04/23/18 @ 21:33 by Boubacar Donaldson MD) COPD with acute exacerbation (Acute) Hyperkalemia (Acute) Subjective: The patient is a 62 y/o F w/ PMHx: Chronic COPD w/ Chronic Hypoxic Respiratory Failure, Crohn's disease, Fe Deficiency Anemia, Tobacco use ongoing who presents to the [facility] ED on 04/23/18 with history of progressively worsening dyspnea x 3-4 days. CXR w/ chronic changes, CBC on admission w/ WBC 10.8 with L shift, afebrile. Admitted to PCU, maintain on oxygen with wean as tolerated to home oxygen supplementation, continue ATC duonebs, PRN albuterol, IV methylprednisolone with prednisone transition 04/25/18 AM, HOB, IS parameters, maintained on azithromycin to complete recent PCP administered z-pack. CTPA upon admission w/ no acute evidence of PE, aortic dissection or aneurysm with marked emphysematous changes of the lungs without any mass or infiltrate. Ongoing improvement, expect likely discharge to home 04/26/18 AM. Elevated BP, Tachycardic without HTN Dx: Notes elevated BP at home, elevated BP above goal on day of presentation, also ongoing tachycardia 110-130s ongoing, asymptomatic. TSH 0.21, FT4 1.05, T3 1.6 thus likely alterations with acute presentation and not consistent with hyperthyroid state. CTPA upon admission w/ no acute evidence of PE, aortic dissection or aneurysm with marked emphysematous changes of the lungs without any mass or infiltrate. This presentation may be solely secondary to current acute exacerbation with usage of steroids and aerosols; however, ongoing therefore trial IV BB w/ improvement , transitioned to oral cardizem, continue to monitor and consider discharge to home on regimen if appropriate. Hyperkalemia upon ED presentation w/ EKG w/ peaked T-waves, admission K+ 6, administered insulin, kayexelate, albuterol, NS , trended w/ repeat 4.0-->04/24/18 AM K+ 3.8, discontinue supplementation which she had been taking at home. 04/25/18 BMP pending. Patient overnight with continued improvement with less dyspnea and less wheezing however still feeling remarkably weak and winded with any exertional attempts. Patient did request that her family not come in to avoid excessive talking which happened day prior. Again encouraged tobacco cessation and patient noted understanding importance of this measure. Discussed her tachycardia noted upon admission which had continued with negative workup for hyperthyroidism, negative pulmonary embolism assessment upon admission with improvement with regimen to control heart rate. Patient denies fevers, chills, nausea, emesis, abdominal pain, chest pain. Objective: Physical Examination: General: awake, alert, oriented x 3 and cooperative, lying in bed, fatigued appearance. Skin: normal color, turgor, no icterus, cyanosis. HEENT: AT/NC, EOMI, PERRLA, MMM. Lungs: Mildly improved but still severely diminished, improved effort, occasional expiratory wheezing noted bilateral bases, supplemental oxygen in place. Heart: Improved, normal rate and regular rhythm; no gallop, rub audible. Abdomen: soft, thin, cachetic habitus, NTTP, ND, normal BS. Extremities: no cyanosis, clubbing or edema. Neurological: patient awake, alert, oriented x 3; cognitive function intact; pupils equally reactive to light and accomodation; cranial nerves II-XII grossly normal, moving all 4 extremities, no focal deficits, strength moderately to severely globally decreased secondary to acute presentation. Psychiatric: affect appears normal, no acute evidence of depressive or anxiety feelings. Vitals/I&O's: Vital Signs Temp Pulse Resp BP Pulse Ox 98.5 F 98 20 H 144/64 H 95 04/25/18 09:25 04/25/18 11:10 04/25/18 09:25 04/25/18 09:25 04/25/18 09:41 Oxygen Flow Rate (L/min) [ 2 AMBULATION with Oxygen] Oxygen Flow Rate (L/min) [ 0 AMBULATING on Room Air] Oxygen Flow Rate (L/min) [At 0 REST on Room Air] Oxygen Flow Rate (L/min) 2 Oxygen Delivery Method Nasal Cannula Weight: 73 lb 13.678 oz Body Mass Index (BMI) 13.1 Intake and Output for Last 24 Hours 04/23/18 04/24/18 04/25/18 23:59 23:59 23:59 Intake Total 2435 / 2435 2491 / 2491 Balance 2435 / 2435 2491 / 2491 Laboratory Results 04/24/18 05:45: TSH 0.21 L, Free T4 1.05 04/24/18 05:45: Free T3 pg/dL 1.6 L Current Medications Acetaminophen (Tylenol) 325 mg PO TID PRN PRN PRN Reason: PAIN Al Hydroxide/Mg Hydroxide (Mylanta Ii) 30 ml PO Q6H PRN PRN PRN Reason: Gastric burning Albuterol Sulfate (Ventolin Aerosols) 2.5 mg INHALATION Q2H PRN PRN PRN Reason: SHORTNESS OF BREATH Albuterol/Ipratropium (Duoneb) 3 ml INHALATION Q4H.RT [facility] Last Admin: 04/25/18 11:25 Dose: 3 ml Bisacodyl (Dulcolax) 5 mg PO DAILY PRN PRN PRN Reason: Constipation Cholecalciferol (Vitamin D) 2,000 unit PO DAILY [facility] Last Admin: 04/25/18 09:31 Dose: 2,000 unit Clonidine (Catapres) 0.1 mg PO Q6H PRN PRN PRN Reason: SBP>160 Diltiazem HCl (Cardizem Cd) 120 mg PO DAILY [facility] Last Admin: 04/25/18 09:32 Dose: 120 mg Enoxaparin Sodium (Lovenox) 30 mg SC DAILY@0600 [facility] Last Admin: 04/25/18 06:12 Dose: 30 mg Ferrous Sulfate (Ferrous Sulfate) 325 mg PO DAILY@0800 [facility] Last Admin: 04/25/18 09:31 Dose: 325 mg Gabapentin (Neurontin) 300 mg PO TIDCM [facility] Last Admin: 04/25/18 12:26 Dose: 300 mg Guaifenesin (Mucinex) 600 mg PO BID [facility] Last Admin: 04/25/18 09:31 Dose: 600 mg Sodium Chloride () 1,000 mls @ 75 mls/hr IV .[id number] [facility] Last Admin: 04/25/18 09:33 Dose: 75 mls/hr Loperamide HCl (Imodium) 2 mg PO Q4H PRN PRN PRN Reason: Diarrhea Magnesium Hydroxide (Milk Of Magnesia) 30 ml PO DAILY PRN PRN Reason: Constipation Magnesium Oxide (Mag-Ox 400) 400 mg PO BID [facility] Last Admin: 04/25/18 09:32 Dose: 400 mg Melatonin (Melatonin) 5 mg PO QHS [facility] Last Admin: 04/24/18 21:51 Dose: 5 mg Mesalamine (Delzicol) 400 mg PO DAILY [facility] Last Admin: 04/25/18 09:32 Dose: 400 mg Multivitamins/Minerals (Multivitamin With Minerals) 1 tablet PO DAILYCM [facility] Last Admin: 04/25/18 09:30 Dose: 1 tablet Nutritional Formula (Lactose Free) (Ensure Enlive) 120 ml PO 4X/DAY [facility] Last Admin: 04/25/18 12:26 Dose: 120 ml Ondansetron HCl (Zofran) 4 mg IV Q8H PRN PRN PRN Reason: NAUSEA Last Admin: 04/24/18 15:33 Dose: 4 mg Polyethylene Glycol (Miralax) 17 gm PO BID [facility] Last Admin: 04/25/18 09:40 Dose: 17 gm Prednisone () 40 mg PO DAILY@0800 [facility] Last Admin: 04/25/18 09:30 Dose: 40 mg Promethazine HCl (Phenergan) 12.5 mg IV Q4H PRN PRN PRN Reason: NAUSEA/VOMITING Last Admin: 04/25/18 10:51 Dose: 12.5 mg Sodium Chloride () 5 - 30 ml IV UD PRN PRN Reason: SALINE FLUSH Last Admin: 04/25/18 06:09 Dose: 10 ml Tramadol HCl (Ultram) 50 mg PO BID [facility] Last Admin: 04/25/18 09:40 Dose: 50 mg Tramadol HCl (Ultram) 50 mg PO Q6H PRN PRN PRN Reason: MODERATE PAIN (4-5/10) Zolpidem Tartrate (Ambien (Generic)) 5 mg PO QHS PRN PRN PRN Reason: INSOMNIA Medical Necessity - Tobacco Use Smoking Status: Current every day smoker Tobacco Use: Cigarettes Assessment/Plan All Active Problems (Last Updated 04/23/18 @ 21:33 by Boubacar Donaldson MD) COPD with acute exacerbation (Acute) Hyperkalemia (Acute) The patient is a 62 y/o F w/ PMHx: Chronic COPD w/ Chronic Hypoxic Respiratory Failure, Crohn's disease, Fe Deficiency Anemia, Tobacco use ongoing who presents to the [facility] ED on 04/23/18 with history of progressively worsening dyspnea x 3-4 days. (1) Acute on chronic COPD exacerbation w/ Chronic Hypoxic Respiratory Failure: CXR w/ chronic changes, CBC on admission w/ WBC 10.8 with L shift, afebrile. Admitted to PCU, maintain on oxygen with wean as tolerated to home oxygen supplementation, continue ATC duonebs, PRN albuterol, IV methylprednisolone with prednisone transition 04/25/18 AM, HOB, IS parameters, maintained on azithromycin to complete recent PCP administered z-pack. CTPA upon admission w/ no acute evidence of PE, aortic dissection or aneurysm with marked emphysematous changes of the lungs without any mass or infiltrate. Ongoing improvement, expect likely discharge to home 04/26/18 AM. (2) Elevated BP, Tachycardic without HTN Dx: Notes elevated BP at home, elevated BP above goal on day of presentation, also ongoing tachycardia 110- 130s ongoing, asymptomatic. TSH 0.21, FT4 1.05, T3 1.6 thus likely alterations with acute presentation and not consistent with hyperthyroid state. CTPA upon admission w/ no acute evidence of PE, aortic dissection or aneurysm with marked emphysematous changes of the lungs without any mass or infiltrate. This presentation may be solely secondary to current acute exacerbation with usage of steroids and aerosols; however, ongoing therefore trial IV BB w/ improvement , transitioned to oral cardizem, continue to monitor and consider discharge to home on regimen if appropriate. (3) Hyperkalemia: EKG w/ peaked T-waves, admission K+ 6, administered insulin, kayexelate, albuterol, NS, trended w/ repeat 4.0-->04/24/18 AM K+ 3.8, discontinue supplementation which she had been taking at home. 04/25/18 BMP pending. (4) Crohn's Disease: Maintain on home mesalamine regimen. (5) Fe Deficiency Anemia: Admission Hgb 12, stable, continue home Fe supplementation. 04/25/18 CBC pending. (6) Severe Protein-Calorie Malnutrition: Evidenced per BMI, habitus, muscle and fat loss, nutrition consulted, supplementations. (7) DVT Prophylaxis: SCDs, lovenox. Code Visit Inpatient E&M: 94457 Subs Hosp L2
[2018-04-25 13:33] LABS: Absolute Lymphocyte Count 0.47 X10^3/ul (0.83-4.51); Absolute Neutrophil Count 8.9 X10^3/uL (2.0-7.7); Basophil# 0.01 X10^3/uL; Basophil% 0.1 % (0-1); Differential Indicated SCAN CRITERIA MET; Hematocrit 38.7 % (37-47); Hemoglobin 12.3 g/dl (12.0-15.0); Lymphocyte # 0.47 X10^3/ul (4.0); Lymphocyte % 4.7 % (19-41); Mean Corp Hgb Conc 31.8 g/gl (32-36); Mean Corpuscular Hgb 32.2 pg (27.0-32.0); Mean Corpuscular Volume 101.3 fL (81-99); Mean Platelet Vol. 10.3 fl (6.2-12.0); Monocyte# 0.55 X10^3/uL; Monocyte% 5.5 % (0-10); Neutrophil # 8.89 X10^3/uL (2.7-7.7); Neutrophil % 89.4 % (47-70); POSITIVE COUNT NO; POSITIVE DIFFERENTIAL YES; POSITIVE MORPHOLOGY NO; Platelet Count 276 K/mm3 (150-450); RBC Distribution Width SD 47.2 fl (35.1-43.9); Red Blood Count 3.82 M/mm3 (4.2-5.4)
[2018-04-25 13:52] LABS: Anion Gap 5 (5-15); BUN 21 mg/dL (7-18); BUN/Creat Ratio 45.8 RATIO (10-20); Calcium,Total 8.6 mg/dL (8.5-10.1); Chloride 102 mmol/L (98-107); Creatinine, Serum 0.46 mg/dL (0.55-1.02); EST Glomerular Filtration Rate 148 mL/min (>60); Est Glom Filt Rate - Afr Amer 178 mL/min (>60); Estimated Creatinine Clearance 68.78 ml/min; Glucose 205 mg/dL (74-106); Sodium Level 143 mmol/L (136-145)
[2018-04-25] MEDS: Ondansetron 4 MG/2 ML Vial IV (17:07)
[2018-04-25] MEDS: guaiFENesin 10 ML UDC (200MG/10ML) PO ×2 (19:31→23:52)
[2018-04-25] MEDS: MELATONIN 10 MG TABLET 5 MG PO (23:03)
[2018-04-26] VITALS (9 sets, daily range): BP systolic 131–158; BP diastolic 64–79; PULSE 72–107; RESP 20–22; TEMP 36.5–36.6; O2SAT 94–99
[2018-04-26] MEDS: Ipratropium/Albuterol Sulfate 3 ML AMPUL.NEB INHALATION ×3 (02:38→11:12)
[2018-04-26] MEDS: Enoxaparin 30 MG/0.3 ML Syringe SC (05:34)
[2018-04-26] MEDS: Ondansetron 4 MG/2 ML Vial IV (05:35)
[2018-04-26] MEDS: traMADol 50 MG Tablet PO ×2 (05:36→09:18)
[2018-04-26 06:55] LABS: Absolute Lymphocyte Count 2.05 X10^3/ul (0.83-4.51); Absolute Neutrophil Count 5.8 X10^3/uL (2.0-7.7); Basophil# 0.01 X10^3/uL; Basophil% 0.1 % (0-1); Hematocrit 34.1 % (37-47); Hemoglobin 10.8 g/dl (12.0-15.0); Lymphocyte # 2.05 X10^3/ul (4.0); Lymphocyte % 22.7 % (19-41); Mean Corp Hgb Conc 31.7 g/gl (32-36); Mean Corpuscular Volume 100.9 fL (81-99); Mean Platelet Vol. 10.7 fl (6.2-12.0); Monocyte# 1.15 X10^3/uL; Monocyte% 12.7 % (0-10); Neutrophil # 5.79 X10^3/uL (2.7-7.7); Neutrophil % 64.1 % (47-70); Platelet Count 257 K/mm3 (150-450); RBC Distribution Width CV 12.9 % (11.6-14.6); RBC Distribution Width SD 46.3 fl (35.1-43.9); Red Blood Count 3.38 M/mm3 (4.2-5.4)
[2018-04-26 07:13] LABS: Anion Gap 4 (5-15); BUN 19 mg/dL (7-18); BUN/Creat Ratio 53.4 RATIO (10-20); Calcium,Total 7.8 mg/dL (8.5-10.1); Chloride 103 mmol/L (98-107); Creatinine, Serum 0.36 mg/dL (0.55-1.02); EST Glomerular Filtration Rate 198 mL/min (>60); Est Glom Filt Rate - Afr Amer 239 mL/min (>60); Estimated Creatinine Clearance 87.89 ml/min; Glucose 104 mg/dL (74-106); Potassium 3.8 mmol/L (3.5-5.1); Sodium Level 143 mmol/L (136-145)
[2018-04-26 07:20] LABS: POSITIVE COUNT NO; POSITIVE DIFFERENTIAL NO; POSITIVE MORPHOLOGY NO
[2018-04-26] MEDS: Gabapentin 300 MG Capsule PO ×2 (07:55→11:23)
[2018-04-26] MEDS: predniSONE 20 MG Tablet 40 MG PO (07:55)
[2018-04-26] MEDS: Multivitamins,Ther W-Minerals Tablet 1 TABLET PO (07:56)
[2018-04-26] MEDS: Ferrous Sulfate 325 MG Tablet PO (07:56)
[2018-04-26] MEDS: Magnesium Oxide 400 MG Tablet PO (09:14)
[2018-04-26] MEDS: MESALAMINE 400 MG CAPSULE.DR PO (09:14)
[2018-04-26] MEDS: dilTIAZem CD 120 MG Capsule PO (09:14)
[2018-04-26] MEDS: guaiFENesin 600 MG Tablet PO (09:15)
[2018-04-26] MEDS: proMETHazine 25 MG/ML Syringe 12.5 MG IV (09:22)
--- NOTE | 2018-04-26 11:43 | PCM.DC ---
- Discharge Diagnoses Current Active Problems: Current Active and Chronic Problems (Last Updated 04/23/18 @ 21:33 by Boubacar Donaldson MD) COPD with acute exacerbation (Acute) Hyperkalemia (Acute) You will use the following diet at home:: No restrictions Discharge Activity: Return to Normal Activity Call your doctor if you observe: Shortness of breath, Dizziness, Fainting spells, Chest pain Allergies/Adverse Reactions: Allergies erythromycin base Adverse Reaction (Verified 04/23/18 17:47) Unknown hydrocodone [From Vicodin] Adverse Reaction (Verified 04/23/18 16:41) Unknown alerted mental status Sulfa (Sulfonamide Antibiotics) Adverse Reaction (Verified 04/23/18 16:42) Nausea Medications to take at Discharge Acetaminophen 325 mg PO TID PRN PRN 04/23/18 Albuterol Inhaler [Ventolin Hfa] 2 puff INHALATION Q6H PRN PRN 04/23/18 Budesonide/Formoterol 160/4.5 [Symbicort 160/4.5 Mcg Inhaler (SP)] 2 puff INHALATION BID 04/23/18 Cholecalciferol (Vitamin D3) [Vitamin D3] 2,000 unit PO DAILY 04/23/18 Ferrous Sulfate 325 mg PO DAILY@0800 04/23/18 Gabapentin [Neurontin] 300 mg PO TIDCM 04/23/18 Guaifenesin [Mucinex] 600 mg PO BID 04/23/18 Ipratropium/Albuterol Sulfate [Duoneb] 3 ml INHALATION Q4H.RT 04/23/18 Loperamide [Imodium] 2 mg PO Q4H PRN PRN 04/23/18 Magnesium Oxide [Magnesium] 400 mg PO BID 04/23/18 Melatonin 5 mg PO QHS 04/23/18 Mesalamine [Apriso] 375 mg PO DAILY 04/23/[address] [place] [Spiriva] 1 puff IH DAILY 04/23/18 traMADol [Ultram] 50 mg PO BID 04/23/18 Diltiazem CD [Cardizem CD] 120 mg PO DAILY #30 cap 04/26/18 The following prescriptions were given: Diltiazem CD [Cardizem CD] 120 mg PO DAILY #30 cap Primary Care Physician: Betina Rae, NURIA-C [Primary Care Provider] - Please follow up with your Primary Care Physician in: 1 Week Test Results: Test results from this visit will be discussed in further detail at your follow-up appointment, if applicable. Proposed Discharge Date: 04/26/18
--- NOTE | 2018-04-26 11:45 | PCM.DC.SUM ---
<Sana Enrique - Last Filed: 04/26/18 11:56> Discharge Date and Diagnosis Date of Admission: 04/23/18 Date of Discharge: 04/26/18 - Primary Discharge Diagnosis Active and Suspected Problems (Last Updated 04/23/18 @ 21:33 by oBubacar Donaldson MD) 1. Acute on chronic COPD exacerbation with chronic hypoxic respiratory failure 2. Hypertension, uncontrolled 3. Tachycardia 4. Hyperkalemia 5. Severe protein calorie malnutrition - Secondary Discharge Diagnosis Iron deficiency anemia Crohn's disease Hospital Course and Treatment Imaging Results: Diagnostic Data Chest X-Ray 04/23/18 17:00 IMPRESSION: COPD with pleural thickening and scarring in the left lung base. Patient may benefit from CT to rule out underlying mass or acute infiltrate. Electronically Signed: Cole St DO at 17:11 EDT Tel [phone], Service support , Chest CTA 04/23/18 17:35 IMPRESSION: 1. No evidence of pulmonary embolus. 2. No aortic dissection or aneurysm. 3. Marked emphysematous changes of the lungs without mass or infiltrate. 4. Elevation of the left anterior diaphragm with minimal left basilar atelectasis. 5. Dilated left renal collecting system. Electronically Signed: Cole St DO at 18:09 EDT Tel [phone], Service support , Operations: None Procedures: None Summary of Care Provided: The patient is a 62 year old F admitted 04/23/2018 due to worsening shortness of breath. She has a past medical history of COPD, chronic hypoxic respiratory failure requiring 2 L continuously nasal cannula at baseline, tobacco dependence, Crohn's disease, iron deficiency anemia. Patient was initially started on Z-Zaheer as outpatient without improvement in symptoms. Patient received IV Solu-Medrol during admission and she completed previously prescribed Z-Zaheer. She was transitioned to oral prednisone and will continue prednisone taper at discharge for 12 days. Breathing status is at baseline. She is stable at rest and with ambulation on chronic 2 L nasal cannula. Patient has home albuterol, DuoNeb, Symbicort and Spiriva inhalers at home. Patient noted to have hyperkalemia on admission. Previously taking potassium supplementation which will be discontinued at discharge. Potassium within normal limits at discharge. Patient also noted to have hypertension and tachycardia. She was placed on Cardizem 120 mg daily. Heart rate and blood pressure improved. She will need further monitoring as outpatient. Follow-up with primary care physician in 1 week. Chest CTA as noted above without evidence of pulmonary embolism or aortic dissection. Marked emphysematous changes in the lungs without mass or infiltrate. TSH 0.21, free T4 1.05, free T3 1.6. Recommend further monitoring by primary care physician. Patient stable at time of discharge. Alert, oriented, no acute distress. Oxygen stable on chronic 2 L nasal cannula. Lungs diminished, clear to auscultation. Heart rate regular in rate and rhythm. Mild intermittent tachycardia. Abdomen soft, nontender. Neuro grossly intact. Cachectic. Normal affect. Skin intact. Vital signs stable. Patient seen exam prior to discharge. Physical assessment as noted above. Patient stable for discharge home with follow-up with primary care physician in 1 week. This patient was seen by NICO Stephen under the supervision of Dr. Parish. Discharge Diet: No Restrictions Discharge Activity: Return to Normal Activity Call your doctor if you observe: Shortness of breath, Dizziness, Fainting spells, Chest pain Home Medications: Medications to take at Discharge Acetaminophen 325 mg PO TID PRN PRN 04/23/18 Albuterol Inhaler [Ventolin Hfa] 2 puff INHALATION Q6H PRN PRN 04/23/18 Budesonide/Formoterol 160/4.5 [Symbicort 160/4.5 Mcg Inhaler (SP)] 2 puff INHALATION BID 04/23/18 Cholecalciferol (Vitamin D3) [Vitamin D3] 2,000 unit PO DAILY 04/23/18 Ferrous Sulfate 325 mg PO DAILY@0800 04/23/18 Gabapentin [Neurontin] 300 mg PO TIDCM 04/23/18 Guaifenesin [Mucinex] 600 mg PO BID 04/23/18 Ipratropium/Albuterol Sulfate [Duoneb] 3 ml INHALATION Q4H.RT 04/23/18 Loperamide [Imodium] 2 mg PO Q4H PRN PRN 04/23/18 Magnesium Oxide [Magnesium] 400 mg PO BID 04/23/18 Melatonin 5 mg PO QHS 04/23/18 Mesalamine [Apriso] 375 mg PO DAILY 04/23/18 Tiotropium [place] [Spiriva] 1 puff IH DAILY 04/23/18 traMADol [Ultram] 50 mg PO BID 04/23/18 Diltiazem CD [Cardizem CD] 120 mg PO DAILY #30 cap 04/26/18 Prednisone See Taper PO DAILY #30 tab 04/26/18 Following Prescrptions Were Given to Patient: Diltiazem CD [Cardizem CD] 120 mg PO DAILY #30 cap Prednisone See Taper PO DAILY #30 tab Primary Care Physician: Betina Rae NP-C [Primary Care Provider] - Please follow up with your Primary Care Physician in: 1 Week Disposition: Home Minutes spent on discharge:: 35 Patient Condition:: Stable Medical Necessity - Tobacco Use Smoking Status: Current every day smoker Tobacco Use: Cigarettes Meaningful Use Info Meaningful Use Diagnoses (Choose all that apply): None applicable <Jayla Parish - Last Filed: 04/26/18 13:08> Hospital Course and Treatment Summary of Care Provided: The patient is a 62 year old F [] Code Visit Inpatient E&M: 85760 Disch Hosp
== END 2018-04-26 13:03 | disposition home or self-care (01) | DRG 190 ==
LOC: ED 17:01 → PCU 20:10
PROVIDERS: Family Medicine; Admitting Provider Hospitalist; Emergency Provider Emergency Medicine; Family Provider Nurse Practitioner Family; PCP Nurse Practitioner Family; Visit Provider Internal Medicine
DX: J44.1 Chronic obstructive pulmonary disease with (acute) exacerbation (principal); E43 Unspecified severe protein-calorie malnutrition; J96.11 Chronic respiratory failure with hypoxia; Z68.1 Body mass index [BMI] 19.9 or less, adult; K50.90 Crohn's disease, unspecified, without complications; I10 Essential (primary) hypertension; E87.5 Hyperkalemia; D50.9 Iron deficiency anemia, unspecified; Z99.81 Dependence on supplemental oxygen; F17.210 Nicotine dependence, cigarettes, uncomplicated
CPT/HCPCS: 36415; 71045; 71275; 80048; 83735; 84439; 84443; 84481; 84484; 85025; 85027; 93005; 94640; 97161; 97165; 97802; 99251; 99283; 99406; J7030; J7050; Q9967; A4216; G0463; J0610; J2405

== ENCOUNTER 2018-05-16 23:45 | Emergency (ER) | payer MEDICARE, SELFPAY ==
[2018-05-16 23:46] VITALS: BP 121/85; PULSE 114; RESP 25; TEMP 37.1; O2SAT 92; BMI 13.6
[2018-05-16 23:50] VITALS: RESP 20; O2SAT 97
--- NOTE | 2018-05-16 23:51 | ED.RN ---
PT REPORTS THAT SHE IS SUPPOSED TO WEAR 2L NC 29/04. PT ARRIVES TO ED NOT WEARING O2. THIS RN APPLIED O2 TO PT. PULSE OX INCREASED. PT FELT LESS SOB. SEE VS FOR DOC.
--- NOTE | 2018-05-17 00:09 | ED.VISSUMM ---
- ER Visit Summary Date of Service: 05/17/18 Chief Complaint: Shortness of breath History of Present Illness: The patient is a 62 F with cough and shortness of breath for 3 weeks, it is improving, she was admitted for pneumonia but she is here today because she has a persistent cough apparently she called her physician who is on vacation and told her to come to the emergency department for an x-ray. She has no fever or chills. As mentioned prior her dyspnea had improved. She is on home oxygen, the family is worried that if she is off home oxygen her pulse ox goes to 91%. Physical Examination: Not appear in acute distress. On nasal cannula breathing comfortably and speaking in full sentences. Moist mucous membranes, no obvious facial deformity No C-spine tenderness supple neck. Regular rate and rhythm without any obvious murmurs Course lungs bilaterally s with some end expiratory wheezing, peaking in full sentences without any obvious respiratory distress Abdomen soft and nontender no guarding or rebound Moves all extremities without any difficulty or pain. Skin does not show any obvious rashes or lesions, no trauma. Alert oriented ?3 with no gross focal deficit Emergency Department Course and Treatment: Patient has a negative chest x-ray, she appears well on her home oxygen she will be discharged to follow-up with PCP. Discharge stable condition Impression: [COPD] This note was generated with [employer] dictation software. It may contain incorrect words, spelling, and punctuation that were not noted in review of the chart prior to signing ED Disposition - Plan for ED Patient: Disposition: Home or Assisted Living Chief Complaint: Shortness of Breath Instructions: What is COPD? Referrals: Betina Rae, NURIA-C [Primary Care Provider] - 3-5 Days
--- NOTE | 2018-05-17 00:10 | RAD_ITS ---
STUDY: X-RAY CHEST REASON FOR EXAM: Female, 62 years old. Cough TECHNIQUE: Single frontal view of the chest. COMPARISON: April 23, 2018 FINDINGS: Lungs are hyperaerated. The lungs are clear and expanded. Elevated left hemidiaphragm and pleural reaction unchanged. Normal size heart. Normal mediastinum and jimmy. Normal visualized pulmonary arteries. Normal visualized aortic arch and descending thoracic aorta. Normal visualized thoracic spine. Normal visualized ribs, clavicles, and shoulders. There is no demonstrated abnormality of the visualized soft tissue structures of the upper abdomen. RAD/Chest 1 View (Portable) IMPRESSION: COPD and pleural reaction left base. No acute disease. Electronically Signed: Arjun Hernández MD at 0:55 EDT , Service support ,
[2018-05-17 00:26] VITALS: O2SAT 100
== END 2018-05-17 01:24 | disposition home or self-care (01) ==
PROVIDERS: Emergency Provider Emergency Medicine; Family Provider Nurse Practitioner Family; PCP Nurse Practitioner Family
DX: J44.9 Chronic obstructive pulmonary disease, unspecified (principal); Z87.01 Personal history of pneumonia (recurrent); Z99.81 Dependence on supplemental oxygen; Z79.899 Other long term (current) drug therapy
CPT/HCPCS: 71045; 99282

== ENCOUNTER 2018-06-27 15:17 | Emergency (ER) | payer MEDICARE, SELFPAY ==
[2018-06-27 15:18] VITALS: BP 123/94; PULSE 111; RESP 23; TEMP 36.9; O2SAT 97; BMI 13.0
--- NOTE | 2018-06-27 15:29 | EKG12_ITS ---
Test Reason : DYSRHYTHMIA Blood Pressure : / mmHG Vent. Rate : 094 BPM Atrial Rate : 094 BPM P-R Int : 144 ms QRS Dur : 084 ms QT Int : 326 ms P-R-T Axes : 085 080 079 degrees QTc Int : 407 ms Normal sinus rhythm Right atrial enlargement Borderline ECG Confirmed by NEMESIO MÁRQUEZ, LIBORIO ([id number]), production editor HARSH GARCIA ([id number] on 07/02/2018 8:44:25 AM Referred By: DAVID Confirmed By:LIBORIO HERR MD
--- NOTE | 2018-06-27 15:34 | ED.DCSUM_ITS ---
- ER Visit Summary Date of Service: 06/27/18 Chief Complaint: Cough, weakness History of Present Illness: The patient is a 62 F who woke this morning with generalized weakness. Patient states she difficulty walking from her bedroom to the living room. She states the symptoms have improved throughout the day. She has had cough for several weeks that is occasionally productive of sputum. She has chronic shortness of breath secondary to COPD. She states her breathing is not any worse than baseline at this time. She has not had fever or chills. The only chest pain she complains of a slight left lower rib pain with coughing only. Physical Examination: Blood pressure is 123/94, temperature 98.5, heart rate 111 , respiratory rate 23, pulse ox 97% on 2 L nasal cannula. Patient sitting upright in bed no acute distress. She speaking full sentences. Head neck examination is unremarkable. Heart is regular rate and rhythm. Lung sounds are clear with good air movement throughout. Abdomen is soft nontender. Extremity examination reveals no focal tenderness. She has good strength and sensation on testing without focal deficit. Test Results: EKG is sinus at 94 with no sign of acute ischemia. Two-view chest x-ray shows no acute pathology. CBC and chemistry studies are unremarkable. Urinalysis is positive for nitrites with 3+ bacteria. 0-5 white cells are noted. Emergency Department Course and Treatment: Patient was given gentle IV fluids. On repeat evaluation she is resting comfortably. She now states that she does have some pain in the suprapubic area. She will be treated with a 3 day course of Keflex. She will be given Pyridium. Treatment Plan: [] Disposition: Discharge Impression: Cystitis This note was generated with [employer] dictation software. It may contain incorrect words, spelling, and punctuation that were not noted in review of the chart prior to signing ED Disposition - Plan for ED Patient: Chief Complaint: Cough Referrals: Betina Rae, NURIA-C [Primary Care Provider] -
[2018-06-27] MEDS: 0.9% Normal Saline 1,000 ML 75 ML IV (15:57)
[2018-06-27 15:58] VITALS: O2SAT 99
--- NOTE | 2018-06-27 16:19 | RAD_ITS ---
STUDY: X-RAY CHEST REASON FOR EXAM: Female, 62 years old. Cough TECHNIQUE: Frontal and lateral views of the chest COMPARISON: 05/17/2018 FINDINGS: There are stable emphysematous changes noted in the lungs. The lungs are otherwise clear. There are no pleural effusions. There is no pneumothorax. The heart is normal in size. The visualized osseous structures are within normal limits. RAD/Chest PA and Lateral IMPRESSION: No acute thoracic pathology. Electronically Signed: Kyaw Drew, at 17:06 EDT Tel , Service support ,
[2018-06-27 16:32] LABS: Absolute Lymphocyte Count 1.38 X10^3/ul (0.83-4.51); Absolute Neutrophil Count 6.4 X10^3/uL (2.0-7.7); Basophil# 0.06 X10^3/uL; Basophil% 0.7 % (0-1); Eosinophil# 0.14 X10^3/uL; Eosinophils% 1.5 % (0-5); Hematocrit 37.5 % (37-47); Hemoglobin 11.9 g/dl (12.0-15.0); Lymphocyte # 1.38 X10^3/ul (4.0); Mean Corp Hgb Conc 31.7 g/gl (32-36); Mean Corpuscular Hgb 31.3 pg (27.0-32.0); Mean Corpuscular Volume 98.7 fL (81-99); Mean Platelet Vol. 10.1 fl (6.2-12.0); Monocyte# 1.25 X10^3/uL; Monocyte% 13.6 % (0-10); Neutrophil # 6.36 X10^3/uL (2.7-7.7); Neutrophil % 69.1 % (47-70); POSITIVE COUNT NO; POSITIVE DIFFERENTIAL NO; POSITIVE MORPHOLOGY NO; Platelet Count 350 K/mm3 (150-450); RBC Distribution Width CV 13.7 % (11.6-14.6); RBC Distribution Width SD 49.4 fl (35.1-43.9); White Blood Count 9.2 K/mm3 (4.4-11.0)
[2018-06-27 16:44] LABS: Anion Gap 5 (5-15); BUN 13 mg/dL (7-18); Calcium,Total 8.8 mg/dL (8.5-10.1); Chloride 101 mmol/L (98-107); Creatinine, Serum 0.48 mg/dL (0.55-1.02); EST Glomerular Filtration Rate 139 mL/min (>60); Est Glom Filt Rate - Afr Amer 169 mL/min (>60); Estimated Creatinine Clearance 63.75 ml/min; Glucose 80 mg/dL (74-106); Potassium 4.3 mmol/L (3.5-5.1); Sodium Level 137 mmol/L (136-145)
[2018-06-27 17:17] LABS: Mucous, Urine 0 SEEN /hpf (<or=2+)
[2018-06-27 17:19] LABS: Color, Urine Yellow (Yellow); Glucose, Dipstick Normal (Normal); Ketone-Dipstick Negative (Negative); Leukocyte Esterase-Dipstick 25 /ul (Negative); Nitrite-Dipstick Positive (Negative); Occult Blood-Urine Negative /ul (Negative); Protein-Dipstick Negative (Negative); Specific Gravity, Urine 1.015 (1.002-1.030); Urine Bilirubin Dipstick Negative (Negative); Urine Clarity Sl. Cloudy (Clear); Urine Urobilinogen Normal (Normal)
[2018-06-27 17:38] LABS: Squamous Epithelial Cells - UA 0-5 SEEN /hpf (5-10)
[2018-06-27 17:39] LABS: Bacteria 3+ /hpf (None Seen); Red Blood Cells-Urine 0-5 SEEN /hpf (0-5); White Blood Cells 0-5 SEEN /hpf (0-5)
[2018-06-27 17:45] VITALS: BP 155/86; PULSE 103; RESP 19; O2SAT 98
--- NOTE | 2018-06-27 18:11 | DCINST.ED_ITS ---
ED Disposition - Plan for ED Patient: Disposition: Home or Assisted Living Chief Complaint: Cough Instructions: ED UTI Cystitis Female Prescriptions: Cephalexin [Keflex] 500 mg PO Q6 #12 capsule Phenazopyridine HCl [Pyridium] 200 mg PO BID PRN PRN #6 tablet PRN Reason: Pain Referrals: Betina Rae MANG[employer] CATCHER-C [Primary Care Provider] - 5-7 Days
[2018-06-27] MEDS: Phenazopyridine 95 MG Tablet 190 MG PO (18:31)
[2018-06-27] MEDS: Cephalexin 250 MG Capsule 500 MG PO (18:31)
[2018-06-27 18:34] VITALS: BP 158/99; PULSE 119; RESP 28; O2SAT 99
== END 2018-06-27 18:35 | disposition home or self-care (01) ==
PROVIDERS: Emergency Provider Emergency Medicine; Family Provider Nurse Practitioner Family; PCP Nurse Practitioner Family
DX: N30.90 Cystitis, unspecified without hematuria (principal); R64 Cachexia; J44.9 Chronic obstructive pulmonary disease, unspecified; K50.90 Crohn's disease, unspecified, without complications; Z79.899 Other long term (current) drug therapy; Z72.0 Tobacco use
CPT/HCPCS: 71046; 80048; 81001; 85025; 87086; 87088; 87186; 93005; 96360; 96361; 99285; J7030; A4216

== ENCOUNTER 2018-07-04 12:54 | Emergency (ER) | payer MEDICARE, SELFPAY ==
[2018-07-04 12:55] VITALS: BP 144/72; PULSE 119; RESP 20; TEMP 37.7; O2SAT 98; BMI 12.9
--- NOTE | 2018-07-04 13:07 | EKG12_ITS ---
Test Reason : SOB Blood Pressure : / mmHG Vent. Rate : 103 BPM Atrial Rate : 103 BPM P-R Int : 150 ms QRS Dur : 086 ms QT Int : 318 ms P-R-T Axes : 087 082 080 degrees QTc Int : 416 ms Sinus tachycardia Low voltage QRS (limb leads) Anteroseptal WA, age undetermined, cannot be excluded Borderline ECG Confirmed by VIVIANA MÁRQUEZ, SIGIFREDO ([id number]), editor producer HARSH GARCIA ([id number]) on 07/07/2018 3:00:20 PM Referred By: TOMER Confirmed By:SIGIFREDO MICHELLE MD
--- NOTE | 2018-07-04 13:14 | ED.DCSUM_ITS ---
- ER Visit Summary Date of Service: 07/04/18 Chief Complaint: Cough, shortness of breath History of Present Illness: The patient is a 62 F presents to the emergency department cough and shortness of breath. The patient has history of COPD. She is on 2 L of oxygen at baseline. She states over the past 3-4 days, she has had increasing shortness of breath, cough with productive sputum, fevers, chills. She has not had increase her oxygen. The patient was hospitalized about a month ago for a COPD exacerbation. She states that that was the last time that she was on steroids or antibiotics. She denies abdominal pain. She denies nausea or vomiting. She has had no chest pain. She denies any history of pulmonary embolus. Physical Examination: Vital signs reviewed General: Well-nourished, well-developed Head: Normocephalic, atraumatic Eyes: Pupils equal and reactive, extraocular muscles intact Neck, supple, no lymphadenopathy Heart: Regular rate and rhythm Respiratory: Mild distress, prolonged expiration, scant wheeze with diminished air movement Abdomen: Soft, nontender, nondistended, no peritoneal signs Back: Nontender Extremities: Nontender, no edema, no cords Skin: Normal color no rash Neuro: Alert and oriented, no focal or lateralizing deficits Test Results: [] Emergency Department Course and Treatment: The patient presents with cough and dyspnea. She had productive sputum, fevers and chills. The patient had sepsis workup performed. She was started on nebulized breathing treatments. She did have marked improvement of her aeration. She had very scant wheezing on reevaluation. X-ray shows no focal infiltrate. She does have mild leukocytosis, but labs including cardiac enzymes and lactate are normal. On reevaluation, she feels markedly improved. She is resting comfortably. She had no further tachypnea. I did discuss options with the patient. At this time, she wants to attempt outpatient therapy. I feel this is reasonable. The patient will be treated with doxycycline, prednisone, and Pepcid. She is comfortable this plan of care. I did correctional substance abuse counselor her that if her symptoms worsen or she is not improving in 24-48 hours to return. She will be discharged home. She is comfortable on her normal 2 L of oxygen. Treatment Plan: [] Disposition: Discharge Impression: 1. COPD exacerbation This note was generated with Dragon dictation software. It may contain incorrect words, spelling, and punctuation that were not noted in review of the chart prior to signing ED Disposition - Plan for ED Patient: Chief Complaint: Shortness of Breath Instructions: ED COPD Flare Prescriptions: Prednisone 10 mg PO DAILY #63 tab Doxycycline Monohydrate 100 mg PO BID #20 cap Famotidine [Pepcid] 20 mg PO BID #28 tab Referrals: Betina Rae, GOVERNMENT AFFAIRS SPECIALIST-C [Primary Care Provider] -
[2018-07-04 13:21] VITALS: PULSE 113; RESP 20
[2018-07-04] MEDS: Ipratropium/Albuterol Sulfate 3 ML AMPUL.NEB INHALATION (13:21)
[2018-07-04] MEDS: Albuterol 2.5 MG/3 ML VIAL.NEB. INHALATION ×2 (13:21)
[2018-07-04] MEDS: 0.9% Normal Saline 1,000 ML 150 ML IV (13:50)
[2018-07-04] MEDS: MethylPREDNISolone 125 MG/2 ML Vial IV (13:50)
[2018-07-04 14:06] VITALS: BP 147/84; PULSE 112; RESP 23; O2SAT 97; O2SAT 98
--- NOTE | 2018-07-04 14:12 | RAD_ITS ---
STUDY: X-RAY CHEST REASON FOR EXAM: Female, 62 years old. Cough, shortness of breath and fever. TECHNIQUE: PA and lateral views of the chest. COMPARISON: Comparison is made with prior study dated June 27, 2018. FINDINGS: EKG electrodes are seen. Hyperinflation. Stable elevation of the left hemidiaphragm and blunting of the left costophrenic angle. Decreased bronchovascular markings in both lungs worse on the left side suggestive of a emphysematous changes. There is been essentially no change since prior study. Normal size heart. Normal mediastinum and jimmy. Normal visualized pulmonary arteries. Normal visualized aortic arch and descending thoracic aorta. There is demineralization of the osseous structures. Normal visualized ribs, clavicles, and shoulders. There is no demonstrated abnormality of the visualized soft tissue structures of the upper abdomen. RAD/Chest PA and Lateral IMPRESSION: Hyperinflation. There has been no change since prior study. Electronically Signed: Gus Estrada MD at 14:42 EDT Tel [phone], Service support ,
[2018-07-04 14:14] LABS: Absolute Lymphocyte Count 1.42 X10^3/ul (0.83-4.51); Absolute Neutrophil Count 9.2 X10^3/uL (2.0-7.7); Basophil# 0.05 X10^3/uL; Basophil% 0.4 % (0-1); Differential Indicated SCAN CRITERIA MET; Eosinophil# 0.06 X10^3/uL; Eosinophils% 0.5 % (0-5); Hematocrit 41.3 % (37-47); Lymphocyte # 1.42 X10^3/ul (4.0); Lymphocyte % 12.2 % (19-41); Mean Corp Hgb Conc 31.5 g/gl (32-36); Mean Corpuscular Hgb 31.3 pg (27.0-32.0); Mean Corpuscular Volume 99.3 fL (81-99); Mean Platelet Vol. 10.6 fl (6.2-12.0); Monocyte# 0.84 X10^3/uL; Monocyte% 7.2 % (0-10); Neutrophil # 9.22 X10^3/uL (2.7-7.7); Neutrophil % 79.5 % (47-70); POSITIVE COUNT NO; POSITIVE DIFFERENTIAL NO; POSITIVE MORPHOLOGY YES; Platelet Count 358 K/mm3 (150-450); RBC Distribution Width SD 50.4 fl (35.1-43.9); Red Blood Count 4.16 M/mm3 (4.2-5.4); White Blood Count 11.6 K/mm3 (4.4-11.0)
[2018-07-04 14:27] LABS: Anion Gap 6 (5-15); BUN 11 mg/dL (7-18); BUN/Creat Ratio 20.5 RATIO (10-20); Calcium,Total 9.4 mg/dL (8.5-10.1); Chloride 100 mmol/L (98-107); Creatinine, Serum 0.54 mg/dL (0.55-1.02); EST Glomerular Filtration Rate 123 mL/min (>60); Est Glom Filt Rate - Afr Amer 149 mL/min (>60); Estimated Creatinine Clearance 56.33 ml/min; Glucose 121 mg/dL (74-106); Potassium 3.8 mmol/L (3.5-5.1); Sodium Level 137 mmol/L (136-145)
[2018-07-04 14:37] LABS: Lactic Acid 1.5 mmol/L (0.4-2.0)
[2018-07-04 15:11] VITALS: BP 143/72; PULSE 103; RESP 19; O2SAT 97
[2018-07-04 15:20] VITALS: BP 147/70; PULSE 102; RESP 19; O2SAT 97
== END 2018-07-04 15:58 | disposition home or self-care (01) ==
LOC: ED 13:10
PROVIDERS: Emergency Provider Emergency Medicine; Family Provider Nurse Practitioner Family; PCP Nurse Practitioner Family
DX: J44.1 Chronic obstructive pulmonary disease with (acute) exacerbation (principal); I10 Essential (primary) hypertension; K50.90 Crohn's disease, unspecified, without complications; Z99.81 Dependence on supplemental oxygen; Z79.899 Other long term (current) drug therapy; Z87.891 Personal history of nicotine dependence
CPT/HCPCS: 71046; 80048; 83605; 84484; 85025; 87040; 93005; 94640; 96361; 96365; 96374; 99285; J7030; A4216; J3490

== ENCOUNTER 2018-07-08 13:50 | Inpatient (IN) | payer MEDICARE, SELFPAY ==
[2018-07-08] VITALS (9 sets, daily range): BP systolic 119–172; BP diastolic 77–98; PULSE 116–131; RESP 18–27; TEMP 36.6–37.3; O2SAT 95–98; BMI 15.9; BMI 12.7
--- NOTE | 2018-07-08 14:00 | EKG12_ITS ---
Test Reason : SOB Blood Pressure : / mmHG Vent. Rate : 128 BPM Atrial Rate : 128 BPM P-R Int : 126 ms QRS Dur : 084 ms QT Int : 294 ms P-R-T Axes : 087 079 072 degrees QTc Int : 429 ms Sinus tachycardia Biatrial enlargement Abnormal ECG Confirmed by NEMESIO MÁRQUEZ, LIBORIO ([id number]), commercial production editor HARSH GARCIA ([id number] on 07/14/2018 3:40:30 PM Referred By: Yoel Izaguirre Confirmed By:LIBORIO HERR MD
--- NOTE | 2018-07-08 14:43 | RAD_ITS ---
STUDY: X-RAY CHEST REASON FOR EXAM: Female, 62 years old. Cough. TECHNIQUE: Single AP portable view of the chest. COMPARISON: Comparison is made with prior examination dated July 04, 2018. FINDINGS: EKG electrodes are seen. Hyperinflation. Stable mild elevation of the left hemidiaphragm with pleural parenchymal changes at the left lung base. This is unchanged. Decreased bronchovascular markings suggestive of emphysematous changes. Normal size heart. Normal mediastinum and jimmy. Normal visualized pulmonary arteries. Normal visualized aortic arch and descending thoracic aorta. Normal visualized thoracic spine. Healed proximal left humeral fracture. There is no demonstrated abnormality of the visualized soft tissue structures of the upper abdomen. RAD/Chest 1 View (Portable) IMPRESSION: Hyperinflation. Electronically Signed: Gus Estrada MD at 15:35 EDT Tel [phone], Service support ,
[2018-07-08] MEDS: Albuterol 2.5 MG/3 ML VIAL.NEB. INHALATION (14:44)
[2018-07-08] MEDS: Ipratropium/Albuterol Sulfate 3 ML AMPUL.NEB INHALATION ×2 (14:44→19:33)
[2018-07-08 14:59] LABS: Absolute Lymphocyte Count 0.43 X10^3/ul (0.83-4.51); Absolute Neutrophil Count 10.9 X10^3/uL (2.0-7.7); Differential Indicated SCAN CRITERIA MET; Hemoglobin 13.1 g/dl (12.0-15.0); Lymphocyte # 0.43 X10^3/ul (4.0); Lymphocyte % 3.7 % (19-41); Mean Corp Hgb Conc 31.2 g/gl (32-36); Mean Corpuscular Hgb 30.8 pg (27.0-32.0); Mean Corpuscular Volume 98.8 fL (81-99); Mean Platelet Vol. 10.4 fl (6.2-12.0); Monocyte# 0.11 X10^3/uL; Neutrophil # 10.92 X10^3/uL (2.7-7.7); Neutrophil % 95.2 % (47-70); POSITIVE COUNT NO; POSITIVE DIFFERENTIAL YES; POSITIVE MORPHOLOGY NO; Platelet Count 318 K/mm3 (150-450); RBC Distribution Width CV 13.7 % (11.6-14.6); RBC Distribution Width SD 49.4 fl (35.1-43.9); Red Blood Count 4.25 M/mm3 (4.2-5.4); White Blood Count 11.5 K/mm3 (4.4-11.0)
[2018-07-08 15:05] LABS: Anion Gap 5 (5-15); BUN 12 mg/dL (7-18); BUN/Creat Ratio 22.7 RATIO (10-20); Calcium,Total 9.3 mg/dL (8.5-10.1); Chloride 95 mmol/L (98-107); Creatinine, Serum 0.53 mg/dL (0.55-1.02); EST Glomerular Filtration Rate 125 mL/min (>60); Est Glom Filt Rate - Afr Amer 151 mL/min (>60); Estimated Creatinine Clearance 57.39 ml/min; Glucose 159 mg/dL (74-106); Potassium 4.1 mmol/L (3.5-5.1); Sodium Level 135 mmol/L (136-145)
--- NOTE | 2018-07-08 16:11 | ED.DCSUM_ITS ---
- ER Visit Summary Date of Service: 07/08/18 Chief Complaint: Shortness of breath History of Present Illness: The patient is a 62 F who presents with shortness of breath. She was seen in the ER 6 days ago for COPD exacerbation and discharged on steroids and antibiotics. She was initially doing well but has begun to worsen again in the last 3 days. She normally uses home oxygen as needed but has been needing to use it more continuously. She does report cough but no sputum. She can planes of sharp chest pain with coughing or palpation only. No fevers. No vomiting. Physical Examination: Heart rate 120 respiratory rate 28 pulse ox 97% on 2 L Patient is tachypneic with decreased air exchange and wheezing Heart is regular rhythm tachycardia Abdomen soft Alert Test Results: EKG shows sinus rhythm at a rate of 128. Chest x-ray shows hyperinflation. Labs notable for white blood cell count 11.5 otherwise unremarkable. Emergency Department Course and Treatment: Patient was treated here with albuterol and Atrovent aerosols. She was given 40 mg of IV Solu-Medrol. Given worsening symptoms and increasing oxygen requirement she was discussed with the hospitalist will be admitted. Treatment Plan: [] Disposition: Admit Impression: COPD exacerbation This note was generated with [employer] dictation software. It may contain incorrect words, spelling, and punctuation that were not noted in review of the chart prior to signing ED Disposition - Plan for ED Patient: Chief Complaint: Shortness of Breath Referrals: Betina Rae NP-C [Primary Care Provider] -
--- NOTE | 2018-07-08 16:31 | PCM.HP.STD ---
<Sana Enrique - Last Filed: 07/08/18 16:57> Problem List (1) COPD with acute exacerbation Status: Acute (2) Hypertension Status: Chronic (3) Chronic respiratory failure with hypoxia Status: Acute (4) Crohn's disease Status: Acute (5) Iron deficiency anemia Status: Acute (6) Severe protein-calorie malnutrition Status: Acute (7) Tobacco dependence Status: Acute History of Present Illness Date of Admission: 07/08/18 Chief Complaint: Shortness of breath. The patient is a 62 year old F who presents to the emergency room due to increased shortness of breath. Patient states she has been more short of breath, above her baseline, for the past approximately 3 weeks. Last night she became increasingly shortness of breath and notes worsening since that time. She called her son today to take her to the emergency room. Patient denies fever, chills. Complains of cough, mostly nonproductive. Patient was seen in the ER 07/04/2018 for COPD exacerbation and discharged on prednisone taper and doxycycline. She notes minimal initial improvement, however recent worsening of symptoms as previously noted. Patient states she does not follow with pulmonary medicine. Continues to smoke half pack per day. She states she has oxygen at home and uses as needed. Family at bedside states there was a sick child with URI visiting patient recently. Patient's past medical history includes COPD with chronic hypoxic respiratory failure, tobacco dependence, Crohn's disease, hypertension, iron deficiency anemia, severe protein calorie malnutrition. Past Medical History Past Medical History (Chronic Problems): Chronic Problems (Last Reviewed 07/08/18 @ 17:10 by Yoel Izaguirre DO) Hypertension (Chronic) Medical History: Medical History (Last Updated 04/23/18 @ 21:33 by Boubacar Donaldson MD) COPD (chronic obstructive pulmonary disease) J44.9 Crohn disease K50.90 Allergies erythromycin base Adverse Reaction (Verified 07/08/18 13:54) Unknown hydrocodone [From Vicodin] Adverse Reaction (Verified 07/08/18 13:54) Unknown alerted mental status Sulfa (Sulfonamide Antibiotics) Adverse Reaction (Verified 07/08/18 13:54) Nausea sulfamethoxazole [From Bactrim] Adverse Reaction (Verified 07/08/18 13:54) Unknown trimethoprim [From Bactrim] Adverse Reaction (Verified 07/08/18 13:54) Unknown Home Medications: Ambulatory Orders Medication Instructions Recorded Acetaminophen 325 mg PO TID PRN PRN 04/23/18 Albuterol Inhaler [Ventolin Hfa] 2 puff INHALATION Q6H PRN PRN 04/23/18 Budesonide/Formoterol 160/4.5 2 puff INHALATION BID 04/23/18 [Symbicort 160/4.5 Mcg Inhaler (SP)] Cholecalciferol (Vitamin D3) 2,000 unit PO DAILY 04/23/18 [Vitamin D3] Gabapentin [Neurontin] 300 mg PO TIDCM 04/23/18 Loperamide [Imodium] 2 mg PO Q4H PRN PRN 04/23/18 Magnesium Oxide [Magnesium] 400 mg PO BID 04/23/18 Melatonin 5 mg PO QHS 04/23/18 Mesalamine [Apriso] 375 mg PO DAILY 04/23/18 Tiotropium Penitas [Spiriva] 1 puff IH DAILY 04/23/18 traMADol [Ultram] 50 mg PO BID 04/23/18 Dicyclomine HCl 20 mg PO BID 06/27/18 Doxycycline Monohydrate 100 mg PO BID #20 cap 07/04/18 Famotidine [Pepcid] 20 mg PO BID #28 tab 07/04/18 Prednisone 10 mg PO DAILY #63 tab 07/04/18 Ipratropium/Albuterol Sulfate 1 vial INHALATION Q4H PRN PRN 07/08/18 [Duoneb] Surgical History: - - Bowel resection secondary to Crohn's disease. 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 Denies: Chills, Fever, Weight Change HEENT: Denies: Head Aches, Sinus Congestion, Sinus Drainage Cardiovascular: Denies: Chest Pain, Edema, Light Headedness, Palpitations, Syncope Respiratory: Reports: Cough, Shortness of Breath, Wheezing. Denies: Sputum production Gastrointestinal: Reports: Abdominal Pain - chronic, intermittent. Denies: Nausea, Vomiting Genitourinary: Denies: Dysuria Musculoskeletal: Denies: Joint Pain, Joint Tenderness Skin: Denies: Rash, Wounds Neurological: Denies: Numbness, Tingling, Focal weakness Psychiatric: Denies: Anxiety, Depression, Homicidal Ideations, Suicidal Ideations Hematologic/ Lymphatic: Denies: Easy Bruising, Easy Bleeding VTE Information - Inpt Only VTE Present on Admission: No VTE Mechan Device Prophylaxis: None VTE Pharm Prophylaxis ordered?: Yes Patient Problems: Active and Suspected Problems (Last Reviewed 07/08/18 @ 17:10 by Yoel Izaguirre DO) Chronic respiratory failure with hypoxia (Acute) Crohn's disease (Acute) Iron deficiency anemia (Acute) Severe protein-calorie malnutrition (Acute) Tobacco dependence (Acute) - Physical Exam General: Alert, Oriented x3, Cooperative, No apparent distress HEENT: Atraumatic, PERRLA, EOMI, Normocephalic Oral: Dry Mucosa Neck: Supple, No JVD, Negative Carotid Bruits Lungs: Diminished, Wheezes Cardiovascular: Regular Rhythm, Normal S1, Normal S2, No murmurs, Tachycardic Abdomen: Bowel Sounds Present, Soft, Non Tender Extremities: No clubbing, No cyanosis, No edema, Capillary Refill Less than 3 Seconds Skin: No rashes, No breakdown, - - Bilateral upper extremity ecchymosis Musculoskeletal: No Tenderness to Palpation of Joints or Extremities, Cachexia Neurological: Cranial nerves II-XII grossly intact, Neuro grossly intact Psych/Mental Status: Normal Affect, Appropriate Vital Signs Temp Pulse Resp BP Pulse Ox 99.1 F 118 H 27 H 172/97 H 97 07/08/18 13:51 07/08/18 14:45 07/08/18 14:45 07/08/18 14:06 07/08/18 14:06 Oxygen Flow Rate (L/min) 2 Oxygen Delivery Method Nasal Cannula Weight: 71 lb Body Mass Index (BMI) 15.9 Laboratory Tests Past 24 Hrs 07/08/18 07/08/18 14:45 14:45 WBC 11.5 H RBC 4.25 Hgb 13.1 Hct 42.0 MCV 98.8 MCH 30.8 MCHC 31.2 L RDW 13.7 RDW Differential 49.4 H Plt Count 318 MPV 10.4 Immature Gran % (Auto) 0.100 Neut % (Auto) 95.2 H Lymph % (Auto) 3.7 L [place] % (Auto) 1.0 Eos % (Auto) 0.0 Baso % (Auto) 0.0 Absolute Neuts (auto) 10.9 H Absolute Lymphs (auto) 0.43 L Total Counted Not Reportable Sodium 135 L Potassium 4.1 Chloride 95 L Carbon Dioxide 35.0 H Anion Gap 5 BUN 12 Creatinine 0.53 L Estim Creat Clear Calc 57.39 Est GFR (MDRD) Af Amer 151 Est GFR (MDRD) Non-Af 125 BUN/Creatinine Ratio 22.7 H Glucose 159 H Calcium 9.3 Assessment/Plan All Active Problems (Last Reviewed 07/08/18 @ 17:10 by Yoel Izaguirre DO) Chronic respiratory failure with hypoxia (Acute) Crohn's disease (Acute) Iron deficiency anemia (Acute) Severe protein-calorie malnutrition (Acute) Tobacco dependence (Acute) COPD with acute exacerbation (Acute) 1. Acute exacerbation of COPD with chronic hypoxic respiratory failure-chest x-ray admission with chronic changes. Failed outpatient treatment with prednisone and doxycycline. Albuterol and DuoNeb aerosols. IV Solu-Medrol. Check respiratory panel. IS. Recommend outpatient follow up with pulmonary medicine given recurrent exacerbations. Continue supplemental oxygen to maintain O2 at or above 90%. 2. Sinus tachycardia- secondary to #1. 3. Tobacco dependence-current half pack per day smoker. Encourage smoking cessation. Nicotine represent patch if desired. 4. Crohn's disease-continue home medication regimen including mesalamine, dicyclomine. 5. Hypertension- not on regimen. PRN hydralazine for systolic greater than 160. 6. Iron deficiency anemia-stable. 7. Severe protein calorie malnutrition-BMI 15.9. Nutrition consult. DVT prophylaxis-Lovenox subcu. This patient was seen by Sana Enrique NP-C under the supervision of Dr. Izaguirre. <Yoel Izaguirre - Last Filed: 07/08/18 17:14> Problem List (1) COPD with acute exacerbation Status: Acute History of Present Illness The patient is a 62 year old F presents with increasing shortness of breath. Patient was recently in the emergency room on 26 June and was diagnosed with COPD exacerbation and sent home with prednisone and doxycycline. Patient is not noting any improvements and presented again to the emergency room. Urgent was tachypneic and tachycardic and I received bronchodilators as well as IV Solu-Medrol. This is all similar to prior episodes of COPD exacerbation. [] Past Medical History Medical History: Medical History (Last Reviewed 07/08/18 @ 17:10 by Yoel Izaguirre DO) COPD (chronic obstructive pulmonary disease) J44.9 Crohn disease K50.90 Allergies erythromycin base Adverse Reaction (Verified 07/08/18 13:54) Unknown hydrocodone [From Vicodin] Adverse Reaction (Verified 07/08/18 16:47) altered mental status alerted mental status Sulfa (Sulfonamide Antibiotics) Adverse Reaction (Verified 07/08/18 13:54) Nausea sulfamethoxazole [From Bactrim] Adverse Reaction (Verified 07/08/18 16:57) hepatitis trimethoprim [From Bactrim] Adverse Reaction (Verified 07/08/18 16:57) hepatitis Surgical History: - Psychiatric History: No pertinent psych hx [employer] FINISHER History: No pertinent HELPER [employer] FINISHER history Smoking Status: Heavy Smoker (>10/day) Tobacco Use: Cigarettes Alcohol: None Drugs: None - *Family History Maternal History Items: Unknown Paternal History Items: Unknown Review of Systems Constitutional: Reports: Malaise. Denies: Chills, Fever, Weight Change HEENT: Denies: Head Aches, Sinus Congestion, Sinus Drainage Cardiovascular: Denies: Chest Pain, Edema, Light Headedness, Palpitations Respiratory: Reports: Cough, Shortness of Breath, Wheezing Gastrointestinal: Reports: Abdominal Pain. Denies: Nausea, Vomiting Genitourinary: Denies: Dysuria Musculoskeletal: Denies: Joint Pain, Joint Tenderness Skin: Denies: Rash, Wounds Neurological: Denies: Focal weakness, Numbness, Tingling Psychiatric: Denies: Anxiety, Depression, Homicidal Ideations, Suicidal Ideations Hematologic/ Lymphatic: Denies: Easy Bruising, Easy Bleeding VTE Information - Inpt Only VTE Present on Admission: No VTE Mechan Device Prophylaxis: None VTE Pharm Prophylaxis ordered?: Yes - Physical Exam General: Alert, Cooperative, No apparent distress, - - Appears much older than stated age HEENT: Atraumatic, PERRLA, EOMI, Normocephalic Oral: Dry Mucosa Neck: No Nodes, Thyroid Normal Size and Texture Lungs: Diminished, Wheezes - Faint Cardiovascular: Regular Rhythm, Normal S1, Normal S2, No murmurs, Tachycardic Abdomen: Bowel Sounds Present, Soft, Tender - umbilical Extremities: No edema, No Calf Tenderness Skin: No rashes, No breakdown, - Musculoskeletal: No Tenderness to Palpation of Joints or Extremities, Cachexia Neurological: Cranial nerves II-XII grossly intact, Neuro grossly intact, Gait narrow based and stable Psych/Mental Status: Normal Affect, Appropriate Vital Signs Temp Pulse Resp BP Pulse Ox 36.9 C 116 H 22 H 157/77 H 96 07/08/18 16:52 07/08/18 16:52 07/08/18 16:52 07/08/18 16:52 07/08/18 16:52 Oxygen Flow Rate (L/min) 2 Oxygen Delivery Method Nasal Cannula Weight: 31.389 kg Body Mass Index (BMI) 12.7 Laboratory Tests Past 24 Hrs 07/08/18 07/08/18 14:45 14:45 WBC 11.5 H RBC 4.25 Hgb 13.1 Hct 42.0 MCV 98.8 MCH 30.8 MCHC 31.2 L RDW 13.7 RDW Differential 49.4 H Plt Count 318 MPV 10.4 Immature Gran % (Auto) 0.100 Neut % (Auto) 95.2 H Lymph % (Auto) 3.7 L [place] % (Auto) 1.0 Eos % (Auto) 0.0 Baso % (Auto) 0.0 Absolute Neuts (auto) 10.9 H Absolute Lymphs (auto) 0.43 L Total Counted Not Reportable Sodium 135 L Potassium 4.1 Chloride 95 L Carbon Dioxide 35.0 H Anion Gap 5 BUN 12 Creatinine 0.53 L Estim Creat Clear Calc 57.39 Est GFR (MDRD) Af Amer 151 Est GFR (MDRD) Non-Af 125 BUN/Creatinine Ratio 22.7 H Glucose 159 H Calcium 9.3 Chest x-ray reviewed and showed hyperinflated airways but no pulmonary edema nor infiltrate. Assessment/Plan Patient seen and examined independently. Data reviewed. I agree with the above note by the nurse practitioner. 1. Acute exacerbation of COPD Will the patient on IV Solu-Medrol Patient will need to quit smoking as continued smoking will further exacerbate her already compromised lungs Continue with oxygen and wean as tolerated. 2. Crohn's disease Patient does have some abdominal pain but does not appear to be in any distress Continue with mesalamine and Bentyl Consider additional testing of her abdominal pain does get worse but patient will be treated with steroids anyways for the COPD exacerbation which if there is any kind of acute Crohn's exacerbation that may simultaneously treat that as well, however, I do not feel the patient is having an acute Crohn's exacerbation. Code Visit Inpatient E&M: [id number] Init Hosp L3
--- NOTE | 2018-07-08 16:35 | HP.PCM_ITS ---
<Sana Enrique - Last Filed: 07/08/18 16:57> Problem List (1) COPD with acute exacerbation Status: Acute (2) Hypertension Status: Chronic (3) Chronic respiratory failure with hypoxia Status: Acute (4) Crohn's disease Status: Acute (5) Iron deficiency anemia Status: Acute (6) Severe protein-calorie malnutrition Status: Acute (7) Tobacco dependence Status: Acute History of Present Illness Date of Admission: 07/08/18 Chief Complaint: Shortness of breath. The patient is a 62 year old F who presents to the emergency room due to increased shortness of breath. Patient states she has been more short of breath, above her baseline, for the past approximately 3 weeks. Last night she became increasingly shortness of breath and notes worsening since that time. She called her son today to take her to the emergency room. Patient denies fever, chills. Complains of cough, mostly nonproductive. Patient was seen in the ER 07/04/2018 for COPD exacerbation and discharged on prednisone taper and doxycycline. She notes minimal initial improvement, however recent worsening of symptoms as previously noted. Patient states she does not follow with pulmonary medicine. Continues to smoke half pack per day. She states she has oxygen at home and uses as needed. Family at bedside states there was a sick child with URI visiting patient recently. Patient's past medical history includes COPD with chronic hypoxic respiratory failure, tobacco dependence, Crohn's disease, hypertension, iron deficiency anemia, severe protein calorie malnutrition. Past Medical History Past Medical History (Chronic Problems): Chronic Problems (Last Reviewed 07/08/18 @ 17:10 by Yoel Izaguirre DO) Hypertension (Chronic) Medical History: Medical History (Last Updated 04/23/18 @ 21:33 by Boubacar Donaldson MD) COPD (chronic obstructive pulmonary disease) J44.9 Crohn disease K50.90 Allergies erythromycin base Adverse Reaction (Verified 07/08/18 13:54) Unknown hydrocodone [From Vicodin] Adverse Reaction (Verified 07/08/18 13:54) Unknown alerted mental status Sulfa (Sulfonamide Antibiotics) Adverse Reaction (Verified 07/08/18 13:54) Nausea sulfamethoxazole [From Bactrim] Adverse Reaction (Verified 07/08/18 13:54) Unknown trimethoprim [From Bactrim] Adverse Reaction (Verified 07/08/18 13:54) Unknown Home Medications: Ambulatory Orders Medication Instructions Recorded Acetaminophen 325 mg PO TID PRN PRN 04/23/18 Albuterol Inhaler [Ventolin Hfa] 2 puff INHALATION Q6H PRN PRN 04/23/18 Budesonide/Formoterol 160/4.5 2 puff INHALATION BID 04/23/18 [Symbicort 160/4.5 Mcg Inhaler (SP)] Cholecalciferol (Vitamin D3) 2,000 unit PO DAILY 04/23/18 [Vitamin D3] Gabapentin [Neurontin] 300 mg PO TIDCM 04/23/18 Loperamide [Imodium] 2 mg PO Q4H PRN PRN 04/23/18 Magnesium Oxide [Magnesium] 400 mg PO BID 04/23/18 Melatonin 5 mg PO QHS 04/23/18 Mesalamine [Apriso] 375 mg PO DAILY 04/23/18 Tiotropium Cedar [Spiriva] 1 puff IH DAILY 04/23/18 traMADol [Ultram] 50 mg PO BID 04/23/18 Dicyclomine HCl 20 mg PO BID 06/27/18 Doxycycline Monohydrate 100 mg PO BID #20 cap 07/04/18 Famotidine [Pepcid] 20 mg PO BID #28 tab 07/04/18 Prednisone 10 mg PO DAILY #63 tab 07/04/18 Ipratropium/Albuterol Sulfate 1 vial INHALATION Q4H PRN PRN 07/08/18 [Duoneb] Surgical History: - - Bowel resection secondary to Crohn's disease. Psychiatric History: No pertinent psych hx FENCE INSTALLER History: No pertinent FENCE INSTALLER history Smoking Status: Current every day smoker Tobacco Use: Cigarettes - Half pack per day Alcohol: None Drugs: None - *Family History Maternal History Items: Unknown - Denies known maternal medical history Paternal History Items: Unknown - Denies known paternal medical history Review of Systems Constitutional: Reports: Malaise. Denies: Chills, Fever, Weight Change HEENT: Denies: Head Aches, Sinus Congestion, Sinus Drainage Cardiovascular: Denies: Chest Pain, Edema, Light Headedness, Palpitations, Syncope Respiratory: Reports: Cough, Shortness of Breath, Wheezing. Denies: Sputum production Gastrointestinal: Reports: Abdominal Pain - chronic, intermittent. Denies: Nausea, Vomiting Genitourinary: Denies: Dysuria Musculoskeletal: Denies: Joint Pain, Joint Tenderness Skin: Denies: Rash, Wounds Neurological: Denies: Numbness, Tingling, Focal weakness Psychiatric: Denies: Anxiety, Depression, Homicidal Ideations, Suicidal Ideations Hematologic/ Lymphatic: Denies: Easy Bruising, Easy Bleeding VTE Information - Inpt Only VTE Present on Admission: No VTE Mechan Device Prophylaxis: None VTE Pharm Prophylaxis ordered?: Yes Patient Problems: Active and Suspected Problems (Last Reviewed 07/08/18 @ 17:10 by Yoel Izaguirre DO) Chronic respiratory failure with hypoxia (Acute) Crohn's disease (Acute) Iron deficiency anemia (Acute) Severe protein-calorie malnutrition (Acute) Tobacco dependence (Acute) - Physical Exam General: Alert, Oriented x3, Cooperative, No apparent distress HEENT: Atraumatic, PERRLA, EOMI, Normocephalic Oral: Dry Mucosa Neck: Supple, No JVD, Negative Carotid Bruits Lungs: Diminished, Wheezes Cardiovascular: Regular Rhythm, Normal S1, Normal S2, No murmurs, Tachycardic Abdomen: Bowel Sounds Present, Soft, Non Tender Extremities: No clubbing, No cyanosis, No edema, Capillary Refill Less than 3 Seconds Skin: No rashes, No breakdown, - - Bilateral upper extremity ecchymosis Musculoskeletal: No Tenderness to Palpation of Joints or Extremities, Cachexia Neurological: Cranial nerves II-XII grossly intact, Neuro grossly intact Psych/Mental Status: Normal Affect, Appropriate Vital Signs Temp Pulse Resp BP Pulse Ox 99.1 F 118 H 27 H 172/97 H 97 07/08/18 13:51 07/08/18 14:45 07/08/18 14:45 07/08/18 14:06 07/08/18 14:06 Oxygen Flow Rate (L/min) 2 Oxygen Delivery Method Nasal Cannula Weight: 71 lb Body Mass Index (BMI) 15.9 Laboratory Tests Past 24 Hrs 07/08/18 07/08/18 14:45 14:45 WBC 11.5 H RBC 4.25 Hgb 13.1 Hct 42.0 MCV 98.8 MCH 30.8 MCHC 31.2 L RDW 13.7 RDW Differential 49.4 H Plt Count 318 MPV 10.4 Immature Gran % (Auto) 0.100 Neut % (Auto) 95.2 H Lymph % (Auto) 3.[address] [place] % (Auto) 1.0 Eos % (Auto) 0.0 Baso % (Auto) 0.0 Absolute Neuts (auto) 10.9 H Absolute Lymphs (auto) 0.43 L Total Counted Not Reportable Sodium 135 L Potassium 4.1 Chloride 95 L Carbon Dioxide 35.0 H Anion Gap 5 BUN 12 Creatinine 0.53 L Estim Creat Clear Calc 57.39 Est GFR (MDRD) Af Amer 151 Est GFR (MDRD) Non-Af 125 BUN/Creatinine Ratio 22.7 H Glucose 159 H Calcium 9.3 Assessment/Plan All Active Problems (Last Reviewed 07/08/18 @ 17:10 by Yoel Izaguirre DO) Chronic respiratory failure with hypoxia (Acute) Crohn's disease (Acute) Iron deficiency anemia (Acute) Severe protein-calorie malnutrition (Acute) Tobacco dependence (Acute) COPD with acute exacerbation (Acute) 1. Acute exacerbation of COPD with chronic hypoxic respiratory failure-chest x- ray admission with chronic changes. Failed outpatient treatment with prednisone and doxycycline. Albuterol and DuoNeb aerosols. IV Solu-Medrol. Check respiratory panel. IS. Recommend outpatient follow up with pulmonary medicine given recurrent exacerbations. Continue supplemental oxygen to maintain O2 at or above 90%. 2. Sinus tachycardia- secondary to #1. 3. Tobacco dependence-current half pack per day smoker. Encourage smoking cessation. Nicotine represent patch if desired. 4. Crohn's disease-continue home medication regimen including mesalamine, dicyclomine. 5. Hypertension- not on regimen. PRN hydralazine for systolic greater than 160. 6. Iron deficiency anemia-stable. 7. Severe protein calorie malnutrition-BMI 15.9. Nutrition consult. DVT prophylaxis-Lovenox subcu. This patient was seen by Snaa Enrique NP-C under the supervision of Dr. Izaguirre. <Yoel Izaguirre - Last Filed: 07/08/18 17:14> Problem List (1) COPD with acute exacerbation Status: Acute History of Present Illness The patient is a 62 year old F presents with increasing shortness of breath. Patient was recently in the emergency room on 26 June and was diagnosed with COPD exacerbation and sent home with prednisone and doxycycline. Patient is not noting any improvements and presented again to the emergency room. Urgent was tachypneic and tachycardic and I received bronchodilators as well as IV Solu-Medrol. This is all similar to prior episodes of COPD exacerbation. [] Past Medical History Medical History: Medical History (Last Reviewed 07/08/18 @ 17:10 by Yoel Izaguirre DO) COPD (chronic obstructive pulmonary disease) J44.9 Crohn disease K50.90 Allergies erythromycin base Adverse Reaction (Verified 07/08/18 13:54) Unknown hydrocodone [From Vicodin] Adverse Reaction (Verified 07/08/18 16:47) altered mental status alerted mental status Sulfa (Sulfonamide Antibiotics) Adverse Reaction (Verified 07/08/18 13:54) Nausea sulfamethoxazole [From Bactrim] Adverse Reaction (Verified 07/08/18 16:57) hepatitis trimethoprim [From Bactrim] Adverse Reaction (Verified 07/08/18 16:57) hepatitis Surgical History: - Psychiatric History: No pertinent psych hx FENCE INSTALLER History: No pertinent FENCE INSTALLER history Smoking Status: Heavy Smoker (>10/day) Tobacco Use: Cigarettes Alcohol: None Drugs: None - *Family History Maternal History Items: Unknown Paternal History Items: Unknown Review of Systems Constitutional: Reports: Malaise. Denies: Chills, Fever, Weight Change HEENT: Denies: Head Aches, Sinus Congestion, Sinus Drainage Cardiovascular: Denies: Chest Pain, Edema, Light Headedness, Palpitations Respiratory: Reports: Cough, Shortness of Breath, Wheezing Gastrointestinal: Reports: Abdominal Pain. Denies: Nausea, Vomiting Genitourinary: Denies: Dysuria Musculoskeletal: Denies: Joint Pain, Joint Tenderness Skin: Denies: Rash, Wounds Neurological: Denies: Focal weakness, Numbness, Tingling Psychiatric: Denies: Anxiety, Depression, Homicidal Ideations, Suicidal Ideations Hematologic/ Lymphatic: Denies: Easy Bruising, Easy Bleeding VTE Information - Inpt Only VTE Present on Admission: No VTE Mechan Device Prophylaxis: None VTE Pharm Prophylaxis ordered?: Yes - Physical Exam General: Alert, Cooperative, No apparent distress, - - Appears much older than stated age HEENT: Atraumatic, PERRLA, EOMI, Normocephalic Oral: Dry Mucosa Neck: No Nodes, Thyroid Normal Size and Texture Lungs: Diminished, Wheezes - Faint Cardiovascular: Regular Rhythm, Normal S1, Normal S2, No murmurs, Tachycardic Abdomen: Bowel Sounds Present, Soft, Tender - umbilical Extremities: No edema, No Calf Tenderness Skin: No rashes, No breakdown, - Musculoskeletal: No Tenderness to Palpation of Joints or Extremities, Cachexia Neurological: Cranial nerves II-XII grossly intact, Neuro grossly intact, Gait narrow based and stable Psych/Mental Status: Normal Affect, Appropriate Vital Signs Temp Pulse Resp BP Pulse Ox 36.9 C 116 H 22 H 157/77 H 96 07/08/18 16:52 07/08/18 16:52 07/08/18 16:52 07/08/18 16:52 07/08/18 16:52 Oxygen Flow Rate (L/min) 2 Oxygen Delivery Method Nasal Cannula Weight: 31.389 kg Body Mass Index (BMI) 12.7 Laboratory Tests Past 24 Hrs 07/08/18 07/08/18 14:45 14:45 WBC 11.5 H RBC 4.25 Hgb 13.1 Hct 42.0 MCV 98.8 MCH 30.8 MCHC 31.2 L RDW 13.7 RDW Differential 49.4 H Plt Count 318 MPV 10.4 Immature Gran % (Auto) 0.100 Neut % (Auto) 95.2 H Lymph % (Auto) 3.[address] [place] % (Auto) 1.0 Eos % (Auto) 0.0 Baso % (Auto) 0.0 Absolute Neuts (auto) 10.9 H Absolute Lymphs (auto) 0.43 L Total Counted Not Reportable Sodium 135 L Potassium 4.1 Chloride 95 L Carbon Dioxide 35.0 H Anion Gap 5 BUN 12 Creatinine 0.53 L Estim Creat Clear Calc 57.39 Est GFR (MDRD) Af Amer 151 Est GFR (MDRD) Non-Af 125 BUN/Creatinine Ratio 22.7 H Glucose 159 H Calcium 9.3 Chest x-ray reviewed and showed hyperinflated airways but no pulmonary edema nor infiltrate. Assessment/Plan Patient seen and examined independently. Data reviewed. I agree with the above note by the nurse practitioner. 1. Acute exacerbation of COPD * Will the patient on IV Solu-Medrol * Patient will need to quit smoking as continued smoking will further exacerbate her already compromised lungs * Continue with oxygen and wean as tolerated. 2. Crohn's disease * Patient does have some abdominal pain but does not appear to be in any distress * Continue with mesalamine and Bentyl * Consider additional testing of her abdominal pain does get worse but patient will be treated with steroids anyways for the COPD exacerbation which if there is any kind of acute Crohn's exacerbation that may simultaneously treat that as well, however, I do not feel the patient is having an acute Crohn's exacerbation. Code Visit Inpatient E&M: 66739 Init Hosp L3
[2018-07-08] MEDS: Dicyclomine 10 MG Capsule 20 MG PO ×2 (17:38→22:34)
[2018-07-08] MEDS: Gabapentin 300 MG Capsule PO (17:38)
[2018-07-08] MEDS: Acetaminophen 325 MG Tablet 650 MG PO (17:39)
[2018-07-08] MEDS: traMADol 50 MG Tablet PO (22:32)
[2018-07-08] MEDS: MELATONIN 10 MG TABLET 5 MG PO (22:33)
[2018-07-08] MEDS: Magnesium Oxide 400 MG Tablet PO (22:33)
[2018-07-08] MEDS: Famotidine 20 MG Tablet PO (22:35)
[2018-07-09] VITALS (15 sets, daily range): BP systolic 116–157; BP diastolic 79–89; PULSE 90–131; RESP 15–24; TEMP 36.6–37.2; O2SAT 95–100
[2018-07-09] MEDS: Ipratropium/Albuterol Sulfate 3 ML AMPUL.NEB INHALATION ×6 (03:22→22:48)
[2018-07-09] MEDS: Dicyclomine 10 MG Capsule 20 MG PO ×4 (06:19→20:46)
--- NOTE | 2018-07-09 09:26 | PCM.PROGNOTE ---
<Sana Enrique - Last Filed: 07/09/18 09:34> Patient Problems: Active and Suspected Problems (Last Reviewed 07/08/18 @ 17:10 by Yoel Iazguirre DO) Chronic respiratory failure with hypoxia (Acute) Crohn's disease (Acute) Iron deficiency anemia (Acute) Severe protein-calorie malnutrition (Acute) Tobacco dependence (Acute) Subjective: Patient seen and examined. Notes improvement in shortness of breath. States her cough was productive overnight. Denies fever, chills. - Physical Exam General: Alert, Oriented x3, Cooperative HEENT: Atraumatic, PERRLA, EOMI, Normocephalic Neck: Supple, No JVD, Negative Carotid Bruits Lungs: Diminished, Wheezes Cardiovascular: Regular Rhythm, Normal S1, Normal S2, No murmurs, Tachycardic Abdomen: Bowel Sounds Present, Soft, Non Tender, Non-Distended Extremities: No clubbing, No cyanosis, No edema, Capillary Refill Less than 3 Seconds Skin: No rashes, No breakdown Musculoskeletal: No Tenderness to Palpation of Joints or Extremities, Cachexia Neurological: Cranial nerves II-XII grossly intact, Neuro grossly intact Psych/Mental Status: Normal Affect, Appropriate Vital Signs Temp Pulse Resp BP Pulse Ox 98.7 F 113 H 20 H 150/83 H 95 07/09/18 07:52 07/09/18 07:52 07/09/18 07:52 07/09/18 07:52 07/09/18 09:01 Oxygen Flow Rate (L/min) 2 Oxygen Delivery Method Nasal Cannula Weight: 69 lb 3.2 oz Body Mass Index (BMI) 12.7 Intake and Output for Last 24 Hours 07/07/18 07/08/18 07/09/18 23:59 23:59 23:59 Intake Total 500 / 500 Output Total 400 / 400 Balance 100 / 100 Laboratory Tests Past 24 Hrs 07/08/18 07/08/18 14:45 14:45 WBC 11.5 H RBC 4.25 Hgb 13.1 Hct 42.0 MCV 98.8 MCH 30.8 MCHC 31.2 L RDW 13.7 RDW Differential 49.4 H Plt Count 318 MPV 10.4 Immature Gran % (Auto) 0.100 Neut % (Auto) 95.2 H Lymph % (Auto) 3.7 L [place] % (Auto) 1.0 Eos % (Auto) 0.0 Baso % (Auto) 0.0 Absolute Neuts (auto) 10.9 H Absolute Lymphs (auto) 0.43 L Total Counted Not Reportable Sodium 135 L Potassium 4.1 Chloride 95 L Carbon Dioxide 35.0 H Anion Gap 5 BUN 12 Creatinine 0.53 L Estim Creat Clear Calc 57.39 Est GFR (MDRD) Af Amer 151 Est GFR (MDRD) Non-Af 125 BUN/Creatinine Ratio 22.7 H Glucose 159 H Calcium 9.3 Medical Necessity - Tobacco Use Smoking Status: Heavy Smoker (>10/day) Tobacco Use: Cigarettes Assessment/Plan All Active Problems (Last Reviewed 07/08/18 @ 17:10 by Yoel Izaguirre DO) Chronic respiratory failure with hypoxia (Acute) Crohn's disease (Acute) Iron deficiency anemia (Acute) Severe protein-calorie malnutrition (Acute) Tobacco dependence (Acute) COPD with acute exacerbation (Acute) 1. Acute exacerbation of COPD with chronic hypoxic respiratory failure-chest x-ray admission with chronic changes. Failed outpatient treatment with prednisone and doxycycline. Albuterol and DuoNeb aerosols. IV Solu-Medrol. IS. Recommend outpatient follow up with pulmonary medicine given recurrent exacerbations. Continue supplemental oxygen to maintain O2 at or above 90%. 2. Sinus tachycardia- secondary to #1. 3. Tobacco dependence-current half pack per day smoker. Encourage smoking cessation. Nicotine represent patch if desired. 4. Crohn's disease-continue home medication regimen including mesalamine, dicyclomine. 5. Hypertension- not on regimen. PRN hydralazine for systolic greater than 160. 6. Iron deficiency anemia-stable. 7. Severe protein calorie malnutrition-BMI 15.9. Nutrition consult. DVT prophylaxis-Lovenox subcu. This patient was seen by NICO Stephen under the supervision of Dr. Gonzales. <Adolfo Gonzales - Last Filed: 07/09/18 17:00> Subjective: Seen and examined. Patient still has significant shortness of breath with cough although is improved than last night. Patient looks very weak and emaciated. Patient also has Crohn's disease but currently stable with no significant diarrhea or abdominal cramps or pain - Physical Exam General: Alert, Oriented x3, Cooperative HEENT: Atraumatic, PERRLA, EOMI, Normocephalic Neck: Supple, No JVD, Negative Carotid Bruits Lungs: Diminished, Rhonchi, Short of Breath, Wheezes Cardiovascular: Regular rate, No murmurs, Tachycardic Abdomen: Bowel Sounds Present, Soft, Non Tender Extremities: No edema, Capillary Refill Less than 3 Seconds Skin: No rashes, No breakdown Musculoskeletal: No Tenderness to Palpation of Joints or Extremities, Cachexia, Muscle Wasting Neurological: Cranial nerves II-XII grossly intact, Neuro grossly intact Psych/Mental Status: Normal Affect, Appropriate Vital Signs Temp Pulse Resp BP Pulse Ox 98.8 F 90 19 H 157/81 H 97 07/09/18 15:30 07/09/18 15:45 07/09/18 15:45 07/09/18 15:30 07/09/18 15:30 Oxygen Flow Rate (L/min) 2 Oxygen Delivery Method Nasal Cannula Weight: 69 lb 3.25 oz Body Mass Index (BMI) 12.7 Intake and Output for Last 24 Hours 07/07/18 07/08/18 07/09/18 23:59 23:59 23:59 Intake Total 900 / 900 Output Total 675 / 675 Balance 225 / 225 Assessment/Plan This patient was seen in conjunction with [employer] STILL OPERATORS[employer]. I have independently interviewed and examined the patient and reviewed pertinent history, examination findings, laboratory and plan of management. I have reviewed the note and agree with the documented findings with the few additional points. In brief, patient is admitted for acute exacerbation of COPD with chronic hypoxic respiratory failure. Chest x-ray does not show acute change. Agree with above treatment regimen. Patient also has cachexia with severe protein calorie malnutrition probably secondary to COPD and Crohn's disease. I have discussed my assessment with Sana QUIÑONES and orders have been reviewed. Code Visit Inpatient E&M: 04262 Subs Hosp L3
[2018-07-09] MEDS: Gabapentin 300 MG Capsule PO ×3 (10:51→18:34)
[2018-07-09] MEDS: Magnesium Oxide 400 MG Tablet PO ×2 (10:51→20:46)
[2018-07-09] MEDS: Enoxaparin 40 MG/0.4 ML Syringe SC (10:52)
[2018-07-09] MEDS: Famotidine 20 MG Tablet PO ×2 (11:02→20:47)
[2018-07-09] MEDS: traMADol 50 MG Tablet PO ×2 (11:04→20:49)
--- NOTE | 2018-07-09 13:25 | CASEMGMT ---
SEE ANNABELLE GAO ASSESS LINK: D/C PLAN: TBD. ANNABELLE GAO Face to Face with patient for initial transition planning/care coordination assessment. ANNABELLE GAO introduced self and role at [facility]. Patient sitting up in bed, alert and oriented. Patient willing to participate in assessment and is able to answer all questions appropriately. Care providers, pharmacy, and demographics verified. -Pt has Passport services. Has HH aide 3 x's/week for 2 hrs each day. Pt reports there is a nurse that comes every 2-3 months. Pt's daughter assists her with bills/finances and with transportation. She states her step-son also assists with transportation. -Reports her nephew lives with her but that is not home much and she would like for someone to stay with her all of the time. Pt stated is interested in further information about Assisted Living facilities. -Wears O2 @ home @ 2l/M via N/C which she gets from [employer]. Confirmed this w/[employer]. They provide concentrator and portable O2 tanks. -Pt states she still currently smokes. Discussed smoking cessation program. Pt stated she has been through 3 of them already and is not interested in trying anything further at this time. -Pt states does not have Adv Directives but is interested in more information. Pt states he has no further needs or concerns at this time. CM to follow for discharge planning needs that may arise. Consult made w/MATTHIAS Villegas re: Adv Dir and Assisted Living. Devyn MATTSON RN, CM
[2018-07-09] MEDS: Mesalamine 1.2 GM Tablet 2.4 GM PO (14:05)
[2018-07-09] MEDS: 0.9% NaCl Peripheral Flush Adult/Peds IV ×2 (14:05→19:22)
--- NOTE | 2018-07-09 15:09 | CASEMGMT ---
Addendum entered by Nelly Henao 07/09/18 16:09: Phone call from Lizette at [facility]. She is no longer Passport CM but Julisa Ashley is new CM. Phone call placed and VM left with Julisa. KONRAD Zhang Original Note: Social Work Received referral from RN SIMA. SW met with pt in room and introduced self and role of SW. Pt lives at home alone in an apartment. Pt does have [facility] services and states her CM is Lizette. Pt receives CONTRACT ACCOUNTANT 3x week for 2 hours and an RN approx 2x month both through [facility]. Pt also receives Mom's meals and has a medical alert. MATTHIAS spoke to pt about assisted living waiver program and provided written information. First pt states that her PCP has said she should not be home alone and then when presented with option pt states she does not want to move to an assisted living at this time. And then states that it would be a relief to her daughter if she did go to [place]. MATTHIAS states information could be passed on to [facility] to talk to pt about this and assess her for eligibility and she is agreeable. Pt plans to return home upon d/c. MATTHIAS inquired about advance directives. MATTHIAS explained Living will and Health Care POA. Pt would like to talk to her dgt prior to completing documents. Written information provided to pt along with card to call as outpt if she would like to complete documents. Phone call to Lizette at [facility] and left informing of admission to [facility] and request to follow for Assisted Living Waiver program. KONRAD Zhang
[2018-07-09] MEDS: Ondansetron 4 MG/2 ML Vial IV (19:22)
[2018-07-09] MEDS: MELATONIN 10 MG TABLET 5 MG PO (20:49)
[2018-07-10] VITALS (9 sets, daily range): BP systolic 145–167; BP diastolic 78–91; PULSE 98–120; RESP 18–21; TEMP 36.8–36.9; O2SAT 2–100
[2018-07-10] MEDS: Ondansetron 4 MG/2 ML Vial IV ×2 (00:31→12:48)
[2018-07-10] MEDS: Ipratropium/Albuterol Sulfate 3 ML AMPUL.NEB INHALATION ×2 (02:04→10:03)
[2018-07-10] MEDS: Dicyclomine 10 MG Capsule 20 MG PO ×2 (05:54→11:34)
--- NOTE | 2018-07-10 08:36 | CASEMGMT ---
Social Work Note SW received message from pt's SIMA Naik at [facility] stating pt does have waiver services. Priscila Pedro EXPORT TRAFFIC DEPARTMENT MANAGER, EARLY CHILDHOOD DIRECTOR
[2018-07-10] MEDS: Gabapentin 300 MG Capsule PO ×2 (08:50→11:34)
[2018-07-10] MEDS: Mesalamine 1.2 GM Tablet 2.4 GM PO (08:50)
[2018-07-10] MEDS: traMADol 50 MG Tablet PO (09:01)
[2018-07-10] MEDS: Famotidine 20 MG Tablet PO (09:01)
[2018-07-10] MEDS: Magnesium Oxide 400 MG Tablet PO (09:01)
[2018-07-10] MEDS: Enoxaparin 40 MG/0.4 ML Syringe SC (09:02)
[2018-07-10] MEDS: hydrALAZINE 20 MG/ML Vial 5 MG IV (09:06)
[2018-07-10] MEDS: 0.9% NaCl Peripheral Flush Adult/Peds IV ×3 (09:07→14:03)
--- NOTE | 2018-07-10 10:22 | DCINST_ITS ---
- Discharge Diagnoses Current Active Problems: Current Active and Chronic Problems (Last Reviewed 07/08/18 @ 17:10 by Yoel Izaguirre DO) Hypertension (Chronic) Chronic respiratory failure with hypoxia (Acute) Crohn's disease (Acute) Iron deficiency anemia (Acute) Severe protein-calorie malnutrition (Acute) Tobacco dependence (Acute) You will use the following diet at home:: Regular, Other - Low residue diet Your food should be the consistency of: Regular Discharge Activity: May Not Drive, May not drive while taking narcotic pain medications. Call your doctor if you observe: Fever of 101 or Higher, Using more than one pad per hour, Swelling in the ankles, Increased palpitations (irregular heartbeat) Allergies/Adverse Reactions: Allergies erythromycin base Adverse Reaction (Verified 07/08/18 13:54) Unknown hydrocodone [From Vicodin] Adverse Reaction (Verified 07/08/18 16:47) altered mental status alerted mental status Sulfa (Sulfonamide Antibiotics) Adverse Reaction (Verified 07/08/18 13:54) Nausea sulfamethoxazole [From Bactrim] Adverse Reaction (Verified 07/08/18 16:57) hepatitis trimethoprim [From Bactrim] Adverse Reaction (Verified 07/08/18 16:57) hepatitis Medications to take at Discharge Acetaminophen 325 mg PO TID PRN PRN 04/23/18 Albuterol Inhaler [Ventolin Hfa] 2 puff INHALATION Q6H PRN PRN 04/23/18 Budesonide/Formoterol 160/4.5 [Symbicort 160/4.5 Mcg Inhaler (SP)] 2 puff INHALATION BID 04/23/18 Cholecalciferol (Vitamin D3) [Vitamin D3] 2,000 unit PO DAILY 04/23/18 Gabapentin [Neurontin] 300 mg PO TIDCM 04/23/18 Loperamide [Imodium] 2 mg PO Q4H PRN PRN 04/23/18 Magnesium Oxide [Magnesium] 400 mg PO BID 04/23/18 Melatonin 5 mg PO QHS 04/23/18 Mesalamine [Apriso] 375 mg PO DAILY 04/23/18 traMADol [Ultram] 50 mg PO BID 04/23/18 Dicyclomine HCl 20 mg PO BID 06/27/18 Famotidine [Pepcid] 20 mg PO BID #28 tab 07/04/18 Ipratropium/Albuterol Sulfate [Duoneb] 1 vial INHALATION Q4H PRN PRN 07/08/18 Nicotine [Nicoderm Cq] 21 mg TRANSDERM. DAILY patch 07/10/18 Prednisone 10 mg PO DAILY #34 tab 07/10/18 Tiotropium [place] [Spiriva] 1 puff IH DAILY #1 cap.w.dev 07/10/18 The following prescriptions were given: Prednisone 10 mg PO DAILY #34 tab Tiotropium [place] [Spiriva] 1 puff IH DAILY #1 cap.w.dev Primary Care Physician: Betina Rae NP-C [Primary Care Provider] - Test Results: Test results from this visit will be discussed in further detail at your follow- up appointment, if applicable. Please Follow Up With: Junaid Da Silva MD When: in 3-4 weeks
--- NOTE | 2018-07-10 10:22 | DS.PCM_ITS ---
Discharge Date and Diagnosis - Problem List Patient Problems: Active and Suspected Problems (Last Reviewed 07/08/18 @ 17:10 by Yoel Izaguirre DO) Chronic respiratory failure with hypoxia (Acute) Crohn's disease (Acute) Iron deficiency anemia (Acute) Severe protein-calorie malnutrition (Acute) Tobacco dependence (Acute) Date of Admission: 07/08/18 Date of Discharge: 07/10/18 - Primary Discharge Diagnosis Active and Suspected Problems (Last Reviewed 07/08/18 @ 17:10 by Yoel Izaguirre DO) Chronic respiratory failure with hypoxia (Acute) Crohn's disease (Acute) Iron deficiency anemia (Acute) Severe protein-calorie malnutrition (Acute) Tobacco dependence (Acute) Acute exacerbation of COPD with chronic hypoxic respiratory failure - Secondary Discharge Diagnosis Chronic Problems (Last Reviewed 07/08/18 @ 17:10 by Yoel Izaguirre DO) Hypertension (Chronic) Hospital Course and Treatment Operations: None Summary of Care Provided: [] patient 62-year-old female was admitted for shortness of breath, cough and respiratory distress consistent with acute exacerbation of COPD with chronic hypoxic respiratory failure. She is on 2 L of home oxygen. Chest x-ray does not show acute change. Patient also has cachexia with severe protein calorie malnutrition probably secondary to COPD and Crohn's disease. Patient was seen and examined today. No fever. Shortness of breath is better. General: Alert, Oriented x3, Cooperative HEENT: Atraumatic, PERRLA, EOMI, Normocephalic Neck: Supple, No JVD, Negative Carotid Bruits Lungs: Diminished, Rhonchi, Short of Breath, Wheezes Cardiovascular: Regular rate, No murmurs, heart rate in 90s. Extremities: No edema, Capillary Refill Less than 3 Seconds Skin: No rashes, No breakdown Musculoskeletal: No Tenderness to Palpation of Joints or Extremities, Cachexia, Muscle Wasting Neurological: Cranial nerves II-XII grossly intact, Neuro grossly intact Psych/Mental Status: Normal Affect, Appropriate 1. Acute exacerbation of COPD with chronic hypoxic respiratory failure-chest x- ray admission with chronic changes. Failed outpatient treatment with prednisone and doxycycline. Albuterol and DuoNeb aerosols. IV Solu-Medrol. IS. Recommend outpatient follow up with pulmonary medicine given recurrent exacerbations. Continue supplemental oxygen to maintain O2 at or above 90%. Discussed with customer experience retail clerk, Dr. Da Silva and he agreed to see patient in 2-4 weeks in pulmonary clinic. Patient has not had recent PFT probably more than 5 years ago. 2. Sinus tachycardia- secondary to #1. Controlled. 3. Tobacco dependence-current half pack per day smoker. Encourage smoking cessation. Nicotine patch. 4. Crohn's disease-continue home medication regimen including mesalamine, dicyclomine. Her symptoms are controlled. 5. Hypertension- not on regimen. PRN hydralazine for systolic greater than 160. 6. Iron deficiency anemia-stable. 7. Severe protein calorie malnutrition-BMI 15.9. Nutrition consult. DVT prophylaxis-Lovenox subcu. Patient agreed to go to rehab because of severe protein calorie malnutrition and advanced COPD for PT, OT and respiratory therapy. Discharge medication reconciliation done. Prescription given for tapering dose of prednisone, Spiriva and tramadol as needed for severe pain. Total time spent, exact 35 minutes on discharge meds reconciliation, examination, review of imaging and blood test and discussion with the patient on follow-up instructions. Discharge Activity: May Not Drive, May not drive while taking narcotic pain medications. Call your doctor if you observe: Fever of 101 or Higher, Using more than one pad per hour, Swelling in the ankles, Increased palpitations (irregular heartbeat) Home Medications: Medications to take at Discharge Acetaminophen 325 mg PO TID PRN PRN 04/23/18 Albuterol Inhaler [Ventolin Hfa] 2 puff INHALATION Q6H PRN PRN 04/23/18 Budesonide/Formoterol 160/4.5 [Symbicort 160/4.5 Mcg Inhaler (SP)] 2 puff INHALATION BID 04/23/18 Cholecalciferol (Vitamin D3) [Vitamin D3] 2,000 unit PO DAILY 04/23/18 Gabapentin [Neurontin] 300 mg PO TIDCM 04/23/18 Loperamide [Imodium] 2 mg PO Q4H PRN PRN 04/23/18 Magnesium Oxide [Magnesium] 400 mg PO BID 04/23/18 Melatonin 5 mg PO QHS 04/23/18 Mesalamine [Apriso] 375 mg PO DAILY 04/23/18 traMADol [Ultram] 50 mg PO BID 04/23/18 Dicyclomine HCl 20 mg PO BID 06/27/18 Famotidine [Pepcid] 20 mg PO BID #28 tab 09/28/18 Ipratropium/Albuterol Sulfate [Duoneb] 1 vial INHALATION Q4H PRN PRN 07/08/18 Nicotine [Nicoderm Cq] 21 mg TRANSDERM. DAILY patch 07/10/18 Prednisone 10 mg PO DAILY #34 tab 07/10/18 Tiotropium [place] [Spiriva] 1 puff IH DAILY #1 cap.w.dev 07/10/18 traMADol [Ultram] 50 mg PO BID PRN PRN #7 tab 07/10/18 Following Prescrptions Were Given to Patient: Prednisone 10 mg PO DAILY #34 tab Tiotropium [place] [Spiriva] 1 puff IH DAILY #1 cap.w.dev traMADol [Ultram] 50 mg PO BID PRN PRN #7 tab PRN Reason: severe pain Primary Care Physician: Betina Rae NP-C [Primary Care Provider] - Please Follow Up With: Junaid Da Silva MD When: in 3-4 weeks Medical Necessity - Tobacco Use Smoking Status: Heavy Smoker (>10/day) Tobacco Use: Cigarettes Meaningful Use Info Meaningful Use Diagnoses (Choose all that apply): None applicable Code Visit Inpatient E&M: 06699 Disch Hosp
--- NOTE | 2018-07-10 12:39 | PCM.TXEXTCAR ---
- Diet 07/08/18 16:46 Diet: Regular Diet Food consistency:: Regular Liquid Consistency:: Regular/Thin Type of Dietary Supplement:: Ensure Complete - Routine Orders/Code Status Suppository Type: Dulcolax 10mg Suppository Frequency: Daily PRN Code Status: Full Code - Therapies Weight Bearing: Weight bearing as tolerated Physical Therapy: Eval and Treat Occupational Therapy: Eval and Treat - Allergies/Procedures Done in Hospital Allergies/Adverse Reactions: Allergies erythromycin base Adverse Reaction (Verified 07/08/18 13:54) Unknown hydrocodone [From Vicodin] Adverse Reaction (Verified 07/08/18 16:47) altered mental status alerted mental status Sulfa (Sulfonamide Antibiotics) Adverse Reaction (Verified 07/08/18 13:54) Nausea sulfamethoxazole [From Bactrim] Adverse Reaction (Verified 07/08/18 16:57) hepatitis trimethoprim [From Bactrim] Adverse Reaction (Verified 07/08/18 16:57) hepatitis - Type of Care/Length of Stay Estimated LOS: Convalescent Care Less Than 30 days Type of Care Needed: Skilled Rehab Potential: Good Prognosis: Good - Additional Orders/Day of Discharge Day of Discharge: 07/10/18 - Dietary and Speech Recommendations Dietitian Recommendations/Changes: Recommend continuing regular diet. Will provide ONS w/ medpass and w/ meals. - Follow Up Care Primary Care Physician: Betina Rae NP-C [Primary Care Provider] - Please follow up with your Primary Care Physician in: in 2 weeks Please Follow Up With: Junaid Da Silva MD When: in 3-4 weeks
--- NOTE | 2018-07-10 13:26 | CASEMGMT ---
Addendum entered by Priscila Pedro 07/10/18 16:17: SW placed a call to pt's SIMA Heena at [facility] and left her a message updating her on pt's discharge to [facility]. Original Note: Social Work Note SW in to talk to pt to confirm discharge plans. Pt states that she was informed that SNF may be appropriate and a good choice. SW explained to pt that she has the choice to make decisions for herself. Pt states understanding. Pt is agreeable to referral being made to [facility]. Pt states that she has been there before and her daughter works there. SW explained referral process and pre-cert authorization. Pt states understanding. SW faxed referral to Carolee at [facility]. SW spoke with Carolee at [facility] who states she is able to accept pt and pt is able to discharge today. SW informed Carolee that pt is medically cleared to discharge and will be discharged today. Carolee states understanding. SW in to update pt of this. Pt states that her nephew will be transporting pt today. Pt states that she has also called her daughter to update her on this as well. Pt asked this worker if she can go to her apartment before being transported to [facility] to get clothes. SW explained that pt will need to go straight to [facility] from [facility]. Pt states understanding and states that she will have her nephew stop and get clothes from her apartment and take them to [facility]. SW updated physician that pt is able to discharge to [facility] today. MATTHIAS faxed completed discharge paperwork to Carolee at [facility] including transfer to extended care facility, signed medication list and any scripts. Originals in SNF folder and copy on pt's chart. MATTHIAS completed convalescent 7000 in [facility]. Originals in SNF folder and copy on pt's chart. MATTHIAS updated Carolee at [facility], [place] [facility] and RN Paulie that pt is able to discharge today and per pt her nephew will be transporting her. Plan: Pt to discharge to [facility] today skilled with pt's nephew transporting Priscila Pedro FORESTRY HUNTER, RD PROJECT MANAGER
[2018-07-10] MEDS: Acetaminophen 325 MG Tablet 650 MG PO (14:06)
== END 2018-07-10 14:40 | disposition skilled nursing facility (03) | DRG 190 ==
LOC: ED 16:17 → MS3 16:21
PROVIDERS: Emergency Provider Emergency Medicine; Family Provider Nurse Practitioner Family; PCP Nurse Practitioner Family; Visit Provider Internal Medicine
DX: J44.1 Chronic obstructive pulmonary disease with (acute) exacerbation (principal); E43 Unspecified severe protein-calorie malnutrition; K50.90 Crohn's disease, unspecified, without complications; J96.11 Chronic respiratory failure with hypoxia; Z68.1 Body mass index [BMI] 19.9 or less, adult; R64 Cachexia; D50.9 Iron deficiency anemia, unspecified; F17.210 Nicotine dependence, cigarettes, uncomplicated; Z79.899 Other long term (current) drug therapy; I10 Essential (primary) hypertension; Z99.81 Dependence on supplemental oxygen; Z23 Encounter for immunization; R00.0 Tachycardia, unspecified
CPT/HCPCS: 71045; 80048; 85025; 93005; 94640; 94667; 94668; 97162; 97165; 97802; 99282; 99406; 90686; A4216; J2405